=== PATIENT | male | born 1940 | race Caucasian/White ===

== ENCOUNTER 2019-12-16 09:40 | Emergency (ER) | payer MEDICARE ==
[~2019-12-16] VITALS: Ht 172.7 cm; Wt 81.0 kg
--- NOTE | 2019-12-16 09:49 | ED Dyspnea ---
General Stated Complaint: SOB Source of Information: Patient Exam Limitations: No Limitations History of Present Illness Date Seen by Provider: Dec 16, 2019 Time Seen by Provider: 09:46 Initial Comments 79-year-old male brought in by EMS. Patient called EMS due to shortness of breath. Just arrived yesterday from [place] where his movement and with his daughter. Patient reports that he has recurrent pneumonia. He denies any cough. Patient was prescribed oxygen but states that he does not have chronic shortness of breath. Patient denies any fevers or chills. He did have some slight nausea. No reports of chest pain. No known COVID exposure. Patient does have a history of kidney transplant, anemia. No other systemic complaints. Allergies and Home Medications Allergies Coded Allergies: amlodipine (Verified Allergy, Unknown, 12/16/19) atorvastatin (Verified Allergy, Unknown, 12/16/19) Patient Home Medication List Home Medication List Reviewed: Yes Review of Systems Review of Systems Constitutional: No chills, No fever EENTM: no symptoms reported Respiratory: No cough; dyspnea on exertion, short of breath Cardiovascular: No chest pain, No palpitations Gastrointestinal: No abdominal pain, No nausea, No vomiting Genitourinary: no symptoms reported Musculoskeletal: no symptoms reported Skin: no symptoms reported Psychiatric/Neurological: No Symptoms Reported Past Mkaxzzt-Ulcdas-Hxdxak Hx Past Med/Social Hx: Reviewed Nursing Past Med/Soc Hx Physical Exam Vital Signs Vital Signs - First Documented 12/16/19 09:43 Temp 36.3 Pulse 59 Resp 17 B/P (MAP) 114/62 (79) Pulse Ox 59 O2 Delivery Room Air Capillary Refill : Height, Weight, BMI Height: '" Weight: lbs. oz. 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 as Tested Skin: Normal Color, Warm/Dry Progress/Results/Core Measures Results/Orders Lab Results Laboratory Tests Test 12/16/19 09:48 Range/Units White Blood Count 7.8 4.3-11.0 10^3/uL Red Blood Count 3.10 L 4.35-5.85 10^6/uL Hemoglobin 8.3 L 13.3-17.7 G/DL Hematocrit 27 L 40-54 % Mean Corpuscular Volume 86 80-99 FL Mean Corpuscular Hemoglobin 27 25-34 PG Mean Corpuscular Hemoglobin Concent 31 L 32-36 G/DL Red Cell Distribution Width 19.7 H 10.0-14.5 % Platelet Count 229 130-400 10^3/uL Mean Platelet Volume 10.6 H 7.4-10.4 FL Immature Granulocyte % (Auto) 0 % Neutrophils (%) (Auto) 74 42-75 % Lymphocytes (%) (Auto) 13 12-44 % Monocytes (%) (Auto) 11 0-12 % Eosinophils (%) (Auto) 2 0-10 % Basophils (%) (Auto) 1 0-10 % Neutrophils # (Auto) 5.7 1.8-7.8 X 10^3 Lymphocytes # (Auto) 1.0 1.0-4.0 X 10^3 Monocytes # (Auto) 0.9 0.0-1.0 X 10^3 Eosinophils # (Auto) 0.1 0.0-0.3 10^3/uL Basophils # (Auto) 0.0 0.0-0.1 10^3/uL Immature Granulocyte # (Auto) 0.0 0.0-0.1 10^3/uL Sodium Level 136 135-145 MMOL/L Potassium Level 4.8 3.6-5.0 MMOL/L Chloride Level 101 98-107 MMOL/L Carbon Dioxide Level 20 L 21-32 MMOL/L Anion Gap 15 H 5-14 MMOL/L Blood Urea Nitrogen 42 H 7-18 MG/DL Creatinine 1.52 H 0.60-1.30 MG/DL Estimat Glomerular Filtration Rate 45 BUN/Creatinine Ratio 28 Glucose Level 226 H 70-105 MG/DL Calcium Level 9.2 8.5-10.1 MG/DL Corrected Calcium 9.6 8.5-10.1 MG/DL Magnesium Level 1.9 1.6-2.4 MG/DL Total Bilirubin 0.7 0.1-1.0 MG/DL Aspartate Amino Transf (AST/SGOT) 27 5-34 U/L Alanine Aminotransferase (ALT/SGPT) 15 0-55 U/L Alkaline Phosphatase 112 40-136 U/L Troponin I < 0.30 <0.30 NG/ML C-Reactive Protein 2.42 H <0.50 MG/DL Pro-B-Type Natriuretic Peptide 4294.0 H <75.0 PG/ML Total Protein 6.6 6.4-8.2 GM/DL Albumin 3.5 3.2-4.5 GM/DL My Orders Orders - WOLF,CHINYERE L DO Ekg Tracing (12/16/19 09:49) Monitor-Rhythm Ecg Trace Only (12/16/19 09:49) Cbc With Automated Diff (12/16/19 09:49) Comprehensive Metabolic Panel (12/16/19 09:49) Magnesium (12/16/19 09:49) Probnp Fs (12/16/19:49) Crp Fs (12/16/19:49) Troponin I Fs (12/16/19 09:49) Albuterol/Ipra Inhalation Soln (Duoneb I (12/16/19 10:00) Svn Small Volume Nebulizer (12/16/19 09:49) Chest Pa/Lat (2 View) (12/16/19 10:27) Furosemide Injection (Lasix Injection) (12/16/19 11:00) Protime With Inr (12/16/19 11:31) Medications Given in ED Current Medications Medications Dose Ordered Sig/Girma Route Start Time Stop Time Status Last Admin Dose Admin Albuterol/ Ipratropium 3 ml ONCE ONCE INH 12/16/19 10:00 12/16/19 10:01 DC 12/16/19 10:05 3 ML Furosemide 40 mg ONCE ONCE IVP 12/16/19 11:00 12/16/19 11:01 DC 12/16/19 11:01 40 MG Vital Signs/I&O 12/16/19 09:43 Temp 36.3 Pulse 59 Resp 17 B/P (MAP) 114/62 (79) Pulse Ox 59 O2 Delivery Room Air Progress Progress Note : Time: 11:34 Progress Note Patient with some mild pulmonary congestion/edema. Patient's oxygen in the mid 90s while he is awake. Patient falls asleep his oxygen does drop into the low 80s. Patient does however have home oxygen prescribed for when he is asleep due to this known problem. Patient likely has some underlying sleep apnea. Patient would prefer to be discharged home with the increase in his Lasix over the next 3 days versus admission. I called and discussed with patient's daughter who unde rstands the plan where he is living. She reiterated that he likely has sleep apnea and won't always wear his oxygen as recommended. I did administer an extra 40 of IV Lasix today. I recommend a follow-up with her primary care provider and also fisher trawl net optimize his medications at home. Patient is stable and will be discharged Diagnostic Imaging Diagonstic Imaging: Xray Plain Films/CT/US/NM/MRI: chest Comments [facility]. [place], [place] NAME: ASHLY RASMUSSEN [facility] REC#: [id number] PT STATUS: REG ER : 1940 PHYSICIAN: CHINYERE WOLF DO ADMIT DATE: 12/16/19/ER FS Draft Date of Exam:12/16/19 CHEST PA/LAT (2 VIEW) INDICATION: Shortness of breath and dyspnea. COMPARISON: No priors. FINDINGS: There are bilateral small posterior sulcal pleural effusions, greater right. The heart size is at the upper limits and there is some prominence of the central pulmonary vascularity as well as likely bilateral mild interstitial type edema. No pneumothorax. IMPRESSION: Overall findings suggest failure pattern with edema, vascular congestion, and small effusions. Reviewed: Reviewed by Me, Reviewed/Discussed Departure Impression Primary Impression: Pulmonary edema with congestive heart failure Disposition: 01 HOME, SELF-CARE Condition: Stable Departure-Patient Inst. Referrals: NO,LOCAL PHYSICIAN (PCP/Family) Primary Care Physician Patient Instructions: When Your Lungs Fill With Fluid, Heart Failure, Adult (DC) Add. Discharge Instructions: Please increase your Lasix to 80 mg daily for 3 days starting tomorrow Follow-up with your primary care provider in 2-3 days for recheck in today symptoms I would recommend you establish care with a fisher trawl net for management of your heart failure CHINYERE WOLF DO Dec 16, 2019 09:49
[2019-12-16] MEDS ORDERED: RT-ALBUTEROL/IPRATROPIUM 3 ML (DUONEB) VIAL INH ONE (10:00)
[2019-12-16 10:05] LABS: BASOPHILS % (AUTO) 1 % (0-10); EOSINOPHILS # (AUTO) 0.1 10^3/uL (0.0-0.3); EOSINOPHILS % (AUTO) 2 % (0-10); HEMATOCRIT 27 % (40-54); HEMOGLOBIN 8.3 G/DL (13.3-17.7); LYMPHOCYTES % (AUTO) 13 % (12-44); MEAN CORPUSCULAR HEMOGLOBIN 27 PG (25-34); MEAN CORPUSCULAR HGB CONC 31 G/DL (32-36); MEAN CORPUSCULAR VOLUME 86 FL (80-99); MEAN PLATELET VOLUME 10.6 FL (7.4-10.4); MONOCYTES # (AUTO) 0.9 X 10^3 (0.0-1.0); MONOCYTES % (AUTO) 11 % (0-12); NEUTROPHILS # (AUTO) 5.7 X 10^3 (1.8-7.8); NEUTROPHILS % (AUTO) 74 % (42-75); PLATELET COUNT 229 10^3/uL (130-400); WHITE BLOOD COUNT 7.8 10^3/uL (4.3-11.0)
[2019-12-16 10:36] LABS: ALANINE AMINOTRANSFERASE 15 U/L (0-55); ALBUMIN 3.5 GM/DL (3.2-4.5); ALKALINE PHOSPHATASE 112 U/L (40-136); BILIRUBIN,TOTAL 0.7 MG/DL (0.1-1.0); BUN/CREATININE RATIO 28; CALCIUM 9.2 MG/DL (8.5-10.1); CARBON DIOXIDE 20 MMOL/L (21-32); CHLORIDE 101 MMOL/L (98-107); CREATININE SERUM 1.52 MG/DL (0.60-1.30); GFR ESTIMATED 45; GLUCOSE 226 MG/DL (70-105); MAGNESIUM 1.9 MG/DL (1.6-2.4); POTASSIUM 4.8 MMOL/L (3.6-5.0); SODIUM 136 MMOL/L (135-145); TOTAL PROTEIN 6.6 GM/DL (6.4-8.2)
--- NOTE | 2019-12-16 10:46 | Diagnostic Imaging Report ---
INDICATION: Shortness of breath and dyspnea. COMPARISON: No priors. FINDINGS: There are bilateral small posterior sulcal pleural effusions, greater right. The heart size is at the upper limits and there is some prominence of the central pulmonary vascularity as well as likely bilateral mild interstitial type edema. No pneumothorax. IMPRESSION: Overall findings suggest failure pattern with edema, vascular congestion, and small effusions. Dictated by: Dictated on workstation # [id number]
[2019-12-16] MEDS ORDERED: FUROSEMIDE 40 MG/4 ML INJ (LASIX) IVP ONE (11:00)
[2019-12-16 11:47] VITALS: BP 141/44
[2019-12-16 12:25] LABS: INR 2.4 (0.8-1.4); PROTHROMBIN TIME PATIENT 26.5 SEC (12.2-14.7)
== END 2019-12-16 11:47 | disposition home or self-care (01) ==
LOC: ER FS 09:41
DX: I50.1 Left ventricular failure, unspecified (principal); Z88.8 Allergy status to other drugs, medicaments and biological substances
CPT/HCPCS: 36415; 71046; 80053; 83735; 83880; 84484; 85025; 85610; 86141; 93041

== ENCOUNTER → 2019-12-21 | Outpatient (CLI) | payer MEDICARE ==
[2019-12-21 14:05] LABS: PROTHROMBIN TIME PATIENT 31.5 SEC (12.2-14.7)
== END ==
LOC: LAB FS 12:28
PROVIDERS: ATTEND Family Medicine
DX: I48.91 Unspecified atrial fibrillation (principal); K92.2 Gastrointestinal hemorrhage, unspecified; Z79.01 Long term (current) use of anticoagulants
CPT/HCPCS: 36415; 85610

== ENCOUNTER 2019-12-25 06:11 | Emergency (ER) | payer MEDICARE ==
[~2019-12-25] VITALS: Ht 172.7 cm; Wt 81.6 kg
--- NOTE | 2019-12-25 06:27 | ED General ---
General Chief Complaint: Abdominal/GI Problems Stated Complaint: FALL Source of Information: Patient, EMS Exam Limitations: No Limitations History of Present Illness Date Seen by Provider: Dec 25, 2019 Time Seen by Provider: 06:15 Initial Comments 79-year-old male presents by EMS with complaint of following this morning. States he was getting out of bed to urinate when his feet slipped and he landed on his back on the floor. Patient denies any pain or injury, however his daughter called EMS because she was told if he ever falls he needs to be seen because he takes Coumadin. Patient denies head injury, headache, neck pain or back pain, joint pain or any extremity pain. He is alert and oriented. Allergies and Home Medications Allergies Coded Allergies: amlodipine (Verified Allergy, Unknown, 12/16/19) atorvastatin (Verified Allergy, Unknown, 12/16/19) Patient Home Medication List Home Medication List Reviewed: Yes Review of Systems Review of Systems Constitutional: No chills, No dizziness, No fever, No malaise, No weakness EENTM: no symptoms reported Respiratory: no symptoms reported; No cough, No short of breath Cardiovascular: no symptoms reported; No chest pain, No syncope Gastrointestinal: No abdominal pain, No loss of appetite; nausea (did have some nausea last night, resolved now) Musculoskeletal: see HPI; No back pain, No joint pain, No neck pain Skin: No change in color, No rash Psychiatric/Neurological: Denies Headache, Denies Numbness, Denies Paresthesia, Denies Weakness Hematologic/Lymphatic: Denies Anemia; Easy Bruising (on coumadin) Past Emrtqin-Eiompq-Ufqsyi Hx Past Med/Social Hx: Reviewed Nursing Past Med/Soc Hx Patient Social History 2nd Hand Smoke Exposure: No Recent Foreign Travel: No Contact w/Someone Who Travel: No Recent Hopitalizations: No Seasonal Allergies Seasonal Allergies: No Past Medical History Surgeries: Yes (Aortic Valve replacement) CABG, Eye Surgery, Gallbladder, Kidney Transplant, Tonsillectomy, Valve Replacement Respiratory: No (PRN Oxygen for shortness of breath) Atrial Fibrillation, Heart Attack, High Cholesterol, Hypertension, Valvular Heart Disease Neurological: No Genitourinary: Yes (Kidney transplant, Urinary retention, UTI's, Sepsis) Renal Failure Gastrointestinal: Yes Gastrointestinal Bleed Musculoskeletal: Yes (Falls) Osteoporosis Endocrine: Yes (INSULIN PUMP) Diabetes, Insulin dep HEENT: No Cancer: No Psychosocial: No Integumentary: No Blood Disorders: Yes (ANEMIA) Physical Exam Vital Signs Vital Signs - First Documented 12/25/19 06:11 Temp 37.1 Pulse 99 Resp 14 B/P (MAP) 129/64 (85) Pulse Ox 94 O2 Delivery Room Air Capillary Refill : Height, Weight, BMI Height: '" Weight: lbs. oz. kg; 27.00 BMI Method: General Appearance: No Apparent Distress, WD/WN Eyes: Bilateral Eye Normal Inspection, Bilateral Eye PERRL, Bilateral Eye EOMI HEENT: PERRL/EOMI, Normal ENT Inspection Neck: Full Range of Motion, Normal Inspection, Non Tender Respiratory: Chest Non Tender, Lungs Clear Cardiovascular: Regular Rate, Rhythm, No Edema, No Gallop Gastrointestinal: Normal Bowel Sounds, No Organomegaly, No Pulsatile Mass, Non Tender, Soft Back: Normal Inspection, No CVA Tenderness, No Vertebral Tenderness Extremity: Normal Capillary Refill, Normal Inspection, Normal Range of Motion, Non Tender, No Calf Tenderness Neurologic/Psychiatric: Alert, Oriented x3, No Motor/Sensory Deficits, Normal Mood/Affect, 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 II-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 Norm as Tested Skin: Normal Color, Warm/Dry Progress/Results/Core Measures Suspected Sepsis SIRS Temperature: Pulse: Respiratory Rate: Laboratory Tests 12/25/19 06:25: White Blood Count 15.5H Blood Pressure / Mean: Laboratory Tests 12/25/19 06:25: Creatinine 1.60H, INR Comment 3.2H, Platelet Count 274 Results/Orders Lab Results Laboratory Tests Test 12/25/19 06:25 Range/Units White Blood Count 15.5 H 4.3-11.0 10^3/uL Red Blood Count 3.07 L 4.35-5.85 10^6/uL Hemoglobin 8.5 L 13.3-17.7 G/DL Hematocrit 27 L 40-54 % Mean Corpuscular Volume 87 80-99 FL Mean Corpuscular Hemoglobin 28 25-34 PG Mean Corpuscular Hemoglobin Concent 32 32-36 G/DL Red Cell Distribution Width 18.9 H 10.0-14.5 % Platelet Count 274 130-400 10^3/uL Mean Platelet Volume 10.5 H 7.4-10.4 FL Neutrophils (%) (Auto) 14 L 42-75 % Lymphocytes (%) (Auto) 0 L 12-44 % Monocytes (%) (Auto) 2 0-12 % Eosinophils (%) (Auto) 0 0-10 % Basophils (%) (Auto) 0 0-10 % Neutrophils # (Auto) 87.9 H 1.8-7.8 X 10^3 Lymphocytes # (Auto) 1.8 1.0-4.0 X 10^3 Monocytes # (Auto) 10.2 H 0.0-1.0 X 10^3 Eosinophils # (Auto) 0.0 0.0-0.3 10^3/uL Basophils # (Auto) 0.0 0.0-0.1 10^3/uL Neutrophils % (Manual) 91 % Lymphocytes % (Manual) 3 % Monocytes % (Manual) 6 % Toxic Granulation 3+ Elliptocytes SLIGHT Prothrombin Time 32.8 H 12.2-14.7 SEC INR Comment 3.2 H 0.8-1.4 Sodium Level 133 L 135-145 MMOL/L Potassium Level 4.5 3.6-5.0 MMOL/L Chloride Level 97 L 98-107 MMOL/L Carbon Dioxide Level 20 L 21-32 MMOL/L Anion Gap 16 H 5-14 MMOL/L Blood Urea Nitrogen 51 H 7-18 MG/DL Creatinine 1.60 H 0.60-1.30 MG/DL Estimat Glomerular Filtration Rate 42 BUN/Creatinine Ratio 32 Glucose Level 334 H 70-105 MG/DL Calcium Level 8.8 8.5-10.1 MG/DL My Orders Orders - MELLISA CORDERO DO Cbc With Automated Diff (12/25/19 06:19) Basic Metabolic Panel (12/25/19 06:19) Protime With Inr (12/25/19 06:19) Manual Differential (12/25/19 06:25) Normal Saline 500 Ml Iv (12/25/19 07:15) Vital Signs/I&O 12/25/19 06:11 Temp 37.1 Pulse 99 Resp 14 B/P (MAP) 129/64 (85) Pulse Ox 94 O2 Delivery Room Air Capillary Refill : Departure Impression Primary Impression: Fall with no significant injury Qualified Codes: W19.XXXA - Unspecified fall, initial encounter Additional Impressions: Mild dehydration CRF (chronic renal failure) Qualified Codes: N18.9 - Chronic kidney disease, unspecified Disposition: 01 HOME, SELF-CARE Condition: Stable Departure-Patient Inst. Decision time for Depature: 07:06 Referrals: ORIANA TEE MD (PCP/Family) Primary Care Physician Patient Instructions: Preventing Falls in the Older Adult, Kidney Failure (DC), Dehydration, Adult (DC) Add. Discharge Instructions: see Dr Tee for follow up in a few days All discharge instructions reviewed with patient and/or family. Voiced understanding. MELLISA CORDERO DO Dec 25, 2019 06:26
[2019-12-25 06:45] LABS: WHITE BLOOD COUNT 15.5 10^3/uL (4.3-11.0)
[2019-12-25 06:46] LABS: EOSINOPHILS % (AUTO) 0 % (0-10); HEMATOCRIT 27 % (40-54); HEMOGLOBIN 8.5 G/DL (13.3-17.7); MEAN CORPUSCULAR HEMOGLOBIN 28 PG (25-34); MEAN CORPUSCULAR HGB CONC 32 G/DL (32-36); MEAN CORPUSCULAR VOLUME 87 FL (80-99); MEAN PLATELET VOLUME 10.5 FL (7.4-10.4); PLATELET COUNT 274 10^3/uL (130-400)
[2019-12-25 06:47] LABS: BASOPHILS % (AUTO) 0 % (0-10)
[2019-12-25 06:50] LABS: INR 3.2 (0.8-1.4); PROTHROMBIN TIME PATIENT 32.8 SEC (12.2-14.7)
[2019-12-25 06:57] LABS: ELLIPT/OVALOCYTES SLIGHT; LYMPHOCYTES % (MANUAL) 3 %; MONOCYTES % (MANUAL) 6 %; NEUTROPHILS % (MANUAL) 91 %; TOXIC GRANULATION/VACUOLAZATIO 3+
[2019-12-25 06:59] LABS: CALCIUM 8.8 MG/DL (8.5-10.1); CREATININE SERUM 1.6 MG/DL (0.60-1.30); POTASSIUM 4.5 MMOL/L (3.6-5.0)
[2019-12-25] MEDS ORDERED: NS IV 500 ML 500 ML IV SCH (07:15)
[2019-12-25 08:28] VITALS: BP 130/56
[2019-12-25] MEDS ORDERED: PANT40TA52 PO (22:05)
[2019-12-25] MEDS ORDERED: PRD1T PO (22:05)
[2019-12-25] MEDS ORDERED: WARF-48 PO (22:05)
[2019-12-25] MEDS ORDERED: TMSL.4C PO (22:05)
[2019-12-25] MEDS ORDERED: METO-333 PO (22:05)
[2019-12-25] MEDS ORDERED: ASPI-999 PO (22:05)
[2019-12-25] MEDS ORDERED: NIFE-25 PO (22:05)
[2019-12-25] MEDS ORDERED: OMEG1CAP24 PO (22:05)
[2019-12-25] MEDS ORDERED: ROSU20TA32 PO (22:05)
[2019-12-25] MEDS ORDERED: FERR236T3 PO (22:27)
[2019-12-25] MEDS ORDERED: FURO-124 PO (22:27)
[2019-12-25] MEDS ORDERED: CALC-140 PO (22:27)
[2019-12-25] MEDS ORDERED: VIT1CAPS44 PO (22:27)
[2019-12-25] MEDS ORDERED: MULT-1136 PO (22:27)
[2019-12-25] MEDS ORDERED: EZET10TA49 PO (22:27)
[2019-12-25] MEDS ORDERED: CYCL25CA7 PO (22:27)
[2019-12-26 12:40] LABS: NEUTROPHILS % (AUTO) 88 % (42-75)
[2019-12-26 12:41] LABS: LYMPHOCYTES % (AUTO) 2 % (12-44); MONOCYTES % (AUTO) 10 % (0-12)
[2019-12-26 12:42] LABS: LYMPHOCYTES # (AUTO) 0.3 X 10^3 (1.0-4.0); MONOCYTES # (AUTO) 1.6 X 10^3 (0.0-1.0); NEUTROPHILS # (AUTO) 13.6 X 10^3 (1.8-7.8)
== END 2019-12-25 08:28 | disposition home or self-care (01) ==
LOC: EDUNIT# 06:11 → ER FS 06:13
DX: E86.0 Dehydration (principal); N18.9 Chronic kidney disease, unspecified; I25.2 Old myocardial infarction; Z95.1 Presence of aortocoronary bypass graft; Z88.8 Allergy status to other drugs, medicaments and biological substances
CPT/HCPCS: 36415; 80048; 85007; 85027; 85610

== ENCOUNTER 2019-12-25 11:18 | Inpatient (IN) | payer MEDICARE ==
[~2019-12-25] VITALS: Ht 172.7 cm; Wt 82.6 kg
--- NOTE | 2019-12-25 11:34 | ED General ---
General Stated Complaint: GENERAL History of Present Illness Date Seen by Provider: Dec 25, 2019 Time Seen by Provider: 11:20 Initial Comments Patient returns to the ER by EMS after being seen this morning (myself) after a fall. At that time he was evaluated with full physical exam and labs and discharged to home without any incident or hesitation. EMS states they were called with concern that patient was "crashing". On arrival patient awake and alert, walked down the stairs to them with normal vital signs and a blood sugar of 280. Patient no distress and without complaint. Patient's daughter wanted him to be evaluated in [place], however EMS brought him to the closest appropriate facility which was here. Patient without any complaint on initial evaluation this time as well, denies pain, injury or feeling of illness. Asked why he is here, he says "I don't know, I have diabetes". Also states "my daughter wanted me to go to [place]" Allergies and Home Medications Allergies Coded Allergies: amlodipine (Verified Allergy, Unknown, 12/16/19) atorvastatin (Verified Allergy, Unknown, 12/16/19) Home Medications Aspirin 81 Mg Tab.chew, 81 MG PO DAILY, (Reported) Metoprolol Tartrate 25 Mg Tablet, 25 MG PO BID, (Reported) Nifedipine 30 Mg Tab.er.24, 30 MG PO DAILY, (Reported) [place]-3 Fatty Acids/Fish Oil 1 Each Capsule.dr, 1 EACH PO DAILY, (Reported) Pantoprazole Sodium 40 Mg Tablet.dr, 40 MG PO BID, (Reported) Prednisone 1 Mg Tab, 2 MG PO DAILY, (Reported) Rosuvastatin Calcium 20 Mg Tablet, 20 MG PO HS, (Reported) Tamsulosin HCl 0.4 Mg Cap, 0.4 MG PO HS, (Reported) Warfarin Sodium 5 Mg Tablet, 5 MG PO HS, (Reported) Patient Home Medication List Home Medication List Reviewed: Yes Review of Systems Review of Systems Constitutional: see HPI; No chills, No dizziness, No fever, No malaise, No weakness Respiratory: cough (occasional); No short of breath, No wheezing Cardiovascular: No edema, No palpitations, No syncope Gastrointestinal: No abdominal pain, No nausea, No vomiting Musculoskeletal: No back pain, No joint pain Skin: No change in color, No rash Psychiatric/Neurological: Denies Headache, Denies Numbness, Denies Weakness Past Nwrnsmh-Sszyrw-Zvlnxk Hx Past Med/Social Hx: Reviewed Nursing Past Med/Soc Hx Patient Social History 2nd Hand Smoke Exposure: No Recent Hopitalizations: No Seasonal Allergies Seasonal Allergies: No Past Medical History Surgeries: Yes (Aortic Valve replacement) CABG, Eye Surgery, Gallbladder, Kidney Transplant, Tonsillectomy, Valve Replacement Respiratory: No (PRN Oxygen for shortness of breath) Cardiac: Yes Atrial Fibrillation, Heart Attack, High Cholesterol, Hypertension, Valvular Heart Disease Neurological: No Genitourinary: Yes (Kidney transplant, Urinary retention, UTI's, Sepsis) Renal Failure Gastrointestinal: Yes Gastrointestinal Bleed Musculoskeletal: Yes (Falls) Osteoporosis Endocrine: Yes (INSULIN PUMP) Diabetes, Insulin dep HEENT: No Cancer: No Psychosocial: No Integumentary: No Blood Disorders: Yes (ANEMIA) Physical Exam Vital Signs Vital Signs - First Documented 12/25/19 11:18 Temp 38.7 Pulse 95 Resp 20 B/P (MAP) 134/73 (93) Pulse Ox 93 O2 Delivery Nasal Cannula O2 Flow Rate 2.00 Capillary Refill : Height, Weight, BMI Height: '" Weight: lbs. oz. 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 Norm as Tested Focused Exam Lactate Level 12/25/19 11:55: Lactic Acid Level 2.47*H 12/25/19 13:33: Lactic Acid Level 1.40 Lactic Acid Level Laboratory Tests Test 12/25/19 11:55 12/25/19 13:33 Lactic Acid Level 2.47 MMOL/L (0.50-2.00) *H 1.40 MMOL/L (0.50-2.00) Progress/Results/Core Measures Suspected Sepsis SIRS Temperature: Pulse: Respiratory Rate: Laboratory Tests 12/25/19 11:35: White Blood Count 16.1H Blood Pressure / Mean: 12/25/19 11:55: Lactic Acid Level 2.47*H 12/25/19 13:33: Lactic Acid Level 1.40 Laboratory Tests 12/25/19 11:35: Creatinine 1.64H, Platelet Count 143, Total Bilirubin 0.8 Results/Orders Lab Results Laboratory Tests Test 12/25/19 11:35 12/25/19 11:55 12/25/19 13:03 12/25/19 13:33 Range/Units White Blood Count 16.1 H 4.3-11.0 10^3/uL Red Blood Count 3.06 L 4.35-5.85 10^6/uL Hemoglobin 8.2 L 13.3-17.7 G/DL Hematocrit 27 L 40-54 % Mean Corpuscular Volume 87 80-99 FL Mean Corpuscular Hemoglobin 27 25-34 PG Mean Corpuscular Hemoglobin Concent 31 L 32-36 G/DL Red Cell Distribution Width 19.3 H 10.0-14.5 % Platelet Count 143 130-400 10^3/uL Mean Platelet Volume 12.1 H 7.4-10.4 FL Immature Granulocyte % (Auto) 1 % Neutrophils (%) (Auto) 89 H 42-75 % Lymphocytes (%) (Auto) 3 L 12-44 % Monocytes (%) (Auto) 8 0-12 % Eosinophils (%) (Auto) 0 0-10 % Basophils (%) (Auto) 0 0-10 % Neutrophils # (Auto) 14.3 H 1.8-7.8 X 10^3 Lymphocytes # (Auto) 0.5 L 1.0-4.0 X 10^3 Monocytes # (Auto) 1.2 H 0.0-1.0 X 10^3 Eosinophils # (Auto) 0.0 0.0-0.3 10^3/uL Basophils # (Auto) 0.0 0.0-0.1 10^3/uL Immature Granulocyte # (Auto) 0.1 0.0-0.1 10^3/uL Neutrophils % (Manual) 87 % Lymphocytes % (Manual) 4 % Monocytes % (Manual) 2 % Eosinophils % (Manual) 0 % Basophils % (Manual) 1 % Band Neutrophils 6 % Hypochromasia SLIGHT Poikilocytosis MODERATE Anisocytosis SLIGHT Microcytosis SLIGHT Spherocytes SLIGHT Acanthocytes SLIGHT Sodium Level 131 L 135-145 MMOL/L Potassium Level 5.5 H 3.6-5.0 MMOL/L Chloride Level 98 98-107 MMOL/L Carbon Dioxide Level 19 L 21-32 MMOL/L Anion Gap 14 5-14 MMOL/L Blood Urea Nitrogen 55 H 7-18 MG/DL Creatinine 1.64 H 0.60-1.30 MG/DL Estimat Glomerular Filtration Rate 41 BUN/Creatinine Ratio 34 Glucose Level 381 H 70-105 MG/DL Calcium Level 8.8 8.5-10.1 MG/DL Corrected Calcium 9.2 8.5-10.1 MG/DL Total Bilirubin 0.8 0.1-1.0 MG/DL Aspartate Amino Transf (AST/SGOT) 56 H 5-34 U/L Alanine Aminotransferase (ALT/SGPT) 27 0-55 U/L Alkaline Phosphatase 106 40-136 U/L Troponin I < 0.30 <0.30 NG/ML Total Protein 6.7 6.4-8.2 GM/DL Albumin 3.5 3.2-4.5 GM/DL Lactic Acid Level 2.47 *H 1.40 0.50-2.00 MMOL/L Urine Color YELLOW Urine Clarity SL CLOUDY Urine pH 6.0 5-9 Urine Specific [place] 1.020 1.016-1.022 Urine Protein 2+ H NEGATIVE Urine Glucose (UA) NEGATIVE NEGATIVE Urine Ketones TRACE H NEGATIVE Urine Nitrite NEGATIVE NEGATIVE Urine Bilirubin NEGATIVE NEGATIVE Urine Urobilinogen 0.2 < = 1.0 MG/DL Urine Leukocyte Esterase 1+ H NEGATIVE Urine RBC (Auto) 2+ H NEGATIVE Urine RBC 5-10 H /HPF Urine WBC >100 H /HPF Urine Squamous Epithelial Cells 0-2 /HPF Urine Crystals NONE /LPF Urine Bacteria LARGE H /HPF Urine Casts NONE /LPF Urine Mucus NEGATIVE /LPF Urine Culture Indicated YES My Orders Orders - ROVENSTINE,MELLISA L DO Ed Iv/Invasive Line Start (12/25/19 11:26) Cbc With Automated Diff (12/25/19 11:26) Comprehensive Metabolic Panel (12/25/19 11:26) Urinalysis (12/25/19 11:26) Ekg Tracing (12/25/19 11:26) Troponin I Fs (12/25/19 11:26) Chest 1 View Ap/Pa Only (12/25/19 11:29) Manual Differential (12/25/19 11:35) Lactic Acid Analyzer (12/25/19 11:53) Acetaminophen Tablet (Tylenol Tablet) (12/25/19 12:15) Blood Culture (12/25/19 12:06) Influenza A And B Antigens (12/25/19 12:08) Coronavirus Sars-Cov-2 So 2019 (12/25/19 12:08) Ns Iv 500 Ml (Sodium Chloride 0.9%) (12/25/19 13:00) Ceftriaxone For Iv Use (Rocephin For I (12/25/19 13:00) Urine Culture (12/25/19 13:03) Medications Given in ED Current Medications Medications Dose Ordered Sig/Girma Route Start Time Stop Time Status Last Admin Dose Admin Acetaminophen 1,000 mg ONCE ONCE PO 12/25/19 12:15 12/25/19 12:16 DC 12/25/19 12:28 1,000 MG Ceftriaxone Sodium 1000 mg/ Sterile Water 10 ml @ 200 mls/hr ONCE ONCE IV 12/25/19 13:00 12/25/19 13:02 DC 12/25/19 13:26 200 MLS/HR Vital Signs/I&O 12/25/19 11:18 Temp 38.7 Pulse 95 Resp 20 B/P (MAP) 134/73 (93) Pulse Ox 93 O2 Delivery Nasal Cannula O2 Flow Rate 2.00 Capillary Refill : Progress Note : Progress Note Did discuss patient's status with his daughter who has been caring for him in the past few weeks. Patient recently here with his daughter after residing in [place]. His daughter states that he has had frequent UTIs recently and in the past month was discharged from the hospital for urinary tract infection which the daughter believes never went away. She doesn't know what Abx he took at that time, but does state that he had "klebsiella" Diagnostic Imaging Diagonstic Imaging: Xray Plain Films/CT/US/NM/MRI: chest Comments Date of Exam:12/25/19 CHEST 1 VIEW AP/PA ONLY INDICATION: Cough and malaise. Frontal chest obtained at 11:36 a.m. and compared to 12/16/2019. FINDINGS: There is poststernotomy change with cardiomegaly. There is central vascular congestion with interstitial edema with some mild bibasilar infiltrate. There is no pneumothorax or pleural fluid. Old left-sided rib fracture is noted. IMPRESSION: Cardiomegaly with poststernotomy change with central vascular congestion and mild interstitial edema. There are mild bibasilar infiltrates. There is no pneumothorax or pleural fluid. 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 1423- called Dr Henderson's cell and home phone 1435- called Dr Henderson's cell and home phone 1440- nurse called in house cra, who called administration. 1445- received call from House Sup who says Dr Henderson answered phone for admin. 1447- called Dr Henderson's cell, no answer 1449- Called from a different phone and Dr Henderson answered (states first phone call he has received from sc) 1449 -Dr Henderson accepts for admission/ transfer to [facility] Impression Primary Impression: UTI (urinary tract infection) Qualified Codes: N39.0 - Urinary tract infection, site not specified Additional Impressions: CRF (chronic renal failure) Qualified Codes: N18.9 - Chronic kidney disease, unspecified Mild dehydration Disposition: ADMITTED INPATIENT Condition: Stable Admissions Decision to Admit Reason: Admit from ER (General) Decision to Admit/Date: Dec 25, 2019 Time/Decision to Admit Time: 12:07 Departure-Patient Inst. Referrals: ORIANA LOJA MD (PCP/Family) Primary Care Physician MELLISA CORDERO DO Dec 25, 2019 11:34
[2019-12-25 11:46] LABS: BASOPHILS % (AUTO) 0 % (0-10); EOSINOPHILS % (AUTO) 0 % (0-10); HEMATOCRIT 27 % (40-54); HEMOGLOBIN 8.2 G/DL (13.3-17.7); LYMPHOCYTES # (AUTO) 0.5 X 10^3 (1.0-4.0); LYMPHOCYTES % (AUTO) 3 % (12-44); MEAN CORPUSCULAR HEMOGLOBIN 27 PG (25-34); MEAN CORPUSCULAR HGB CONC 31 G/DL (32-36); MEAN CORPUSCULAR VOLUME 87 FL (80-99); MEAN PLATELET VOLUME 12.1 FL (7.4-10.4); MONOCYTES # (AUTO) 1.2 X 10^3 (0.0-1.0); MONOCYTES % (AUTO) 8 % (0-12); NEUTROPHILS # (AUTO) 14.3 X 10^3 (1.8-7.8); NEUTROPHILS % (AUTO) 89 % (42-75); PLATELET COUNT 143 10^3/uL (130-400); WHITE BLOOD COUNT 16.1 10^3/uL (4.3-11.0)
--- NOTE | 2019-12-25 12:02 | Diagnostic Imaging Report ---
INDICATION: Cough and malaise. Frontal chest obtained at 11:36 a.m. and compared to 12/16/2019. FINDINGS: There is poststernotomy change with cardiomegaly. There is central vascular congestion with interstitial edema with some mild bibasilar infiltrate. There is no pneumothorax or pleural fluid. Old left-sided rib fracture is noted. IMPRESSION: Cardiomegaly with poststernotomy change with central vascular congestion and mild interstitial edema. There are mild bibasilar infiltrates. There is no pneumothorax or pleural fluid. Dictated by: Dictated on workstation # [id number]
[2019-12-25 12:10] LABS: POTASSIUM 5.5 MMOL/L (3.6-5.0); SODIUM 131 MMOL/L (135-145)
[2019-12-25 12:11] LABS: ALANINE AMINOTRANSFERASE 27 U/L (0-55); ALBUMIN 3.5 GM/DL (3.2-4.5); ALKALINE PHOSPHATASE 106 U/L (40-136); BILIRUBIN,TOTAL 0.8 MG/DL (0.1-1.0); BUN/CREATININE RATIO 34; CALCIUM 8.8 MG/DL (8.5-10.1); CARBON DIOXIDE 19 MMOL/L (21-32); CHLORIDE 98 MMOL/L (98-107); CREATININE SERUM 1.64 MG/DL (0.60-1.30); GFR ESTIMATED 41; GLUCOSE 381 MG/DL (70-105); TOTAL PROTEIN 6.7 GM/DL (6.4-8.2)
[2019-12-25] MEDS ORDERED: ACETAMINOPHEN 500 MG TAB (TYLENOL) PO ONE (12:15)
[2019-12-25 12:39] LABS: ANISOCYTOSIS SLIGHT; BAND NEUTROPHILS 6 %; BASOPHILS % (MANUAL) 1 %; EOSINOPHILS % (MANUAL) 0 %; HYPOCHROMASIA SLIGHT; LYMPHOCYTES % (MANUAL) 4 %; MICROCYTOSIS SLIGHT; MONOCYTES % (MANUAL) 2 %; NEUTROPHILS % (MANUAL) 87 %; POIKILOCYTOSIS MODERATE
[2019-12-25 12:40] LABS: ACANTHOCYTES SLIGHT; SPHEROCYTES SLIGHT
[2019-12-25] MEDS ORDERED: NS IV 500 ML 500 ML IV SCH (13:00)
[2019-12-25] MEDS ORDERED: cefTRIAXone FOR IV USE 1,000 MG in WATER (STERILE) FOR INJECTION 10 ML IV ONE (13:00)
--- NOTE | 2019-12-25 13:23 | NUR ---
Called house sup for bed.
[2019-12-25 13:26] LABS: BACTERIA,URINE LARGE /HPF; BILIRUBIN,URINE NEGATIVE (NEGATIVE); CLARITY,URINE SL CLOUDY; COLOR,URINE YELLOW; GLUCOSE, URINE (UA) NEGATIVE (NEGATIVE); KETONES,URINE TRACE (NEGATIVE); LEUKOCYTE ESTERASE ,URINE 1+ (NEGATIVE); NITRITE,URINE NEGATIVE (NEGATIVE); PROTEIN,URINE 2+ (NEGATIVE); SQUAMOUS EPITHELIAL CELL,UR 0-2 /HPF; WBC,URINE >100 /HPF
--- NOTE | 2019-12-25 15:09 | NUR ---
Pt's clara stated he was seen in [facility] in [facility] recently twice for UTI cx klebsiella. Will notify NICOLASA Davis who will be caring for patient to request records for recent admit, dc summary and urine C&S.
--- NOTE | 2019-12-25 16:01 | NUR ---
EMS called and stated they will be here in 10 minutes
--- NOTE | 2019-12-25 16:20 | NUR ---
EMS arrived at this time. Report was given and care was transferred.
--- NOTE | 2019-12-25 17:25 | NUR ---
ASHLY RASMUSSEN admitted to room 429-1, with an admitting diagnosis of UTI, DEHYDRATION, CHRONIC RENAL FAILURE,INFLUENZA A AND B, on 12/25/19 from ED via , accompanied by .ASHLY RASMUSSEN introduced to surroundings, call light, bed controls, phone, TV, temperature control, lights, meal times, smoking policy, visitor policy, side rail policy, bathrooms and showers. Patient Rights given to patient in the handbook. ASHLY RASMUSSEN verbalizes understanding that [facility] is not responsible for the loss or damage to any personal effects or valuables that are kept in the patients posession during their hospitalization. ASHLY RASMUSSEN verbalizes understanding of Interdisciplinary Patient Education. Patient and/or family were informed about the Rapid Response Team and its purpose.
[2019-12-25] MEDS ORDERED: NS IV 1000 ML 1,000 ML IV SCH (17:30)
[2019-12-25 17:55] VITALS: BP 140/65
[2019-12-25] MEDS ORDERED: FLU QUAD HIGH DOSE 240 MCG/0.7 ML 2020-21 (FLUZONE) IM ONE (18:45)
[2019-12-25 19:04] VITALS: BP 145/62
--- NOTE | 2019-12-25 21:40 | NUR ---
I TALKED WITH PTS DAUGHTER (TEODORO) ABOUT PTS HOME MEDICATIONS. DAUGHTER WAS ABLE TO TELL ME ALL HIS MEDICATIONS AND WHEN/HOW PT TAKES EACH PILL. RECONCILE HOME MED WAS DONE
[2019-12-25] MEDS ORDERED: PRD1T PO (22:05)
[2019-12-25] MEDS ORDERED: METO-333 PO (22:05)
[2019-12-25] MEDS ORDERED: TMSL.4C PO (22:05)
[2019-12-25] MEDS ORDERED: PANT40TA52 PO (22:05)
[2019-12-25] MEDS ORDERED: ASPI-999 PO (22:05)
[2019-12-25] MEDS ORDERED: WARF-48 PO (22:05)
[2019-12-25] MEDS ORDERED: OMEG1CAP24 PO (22:05)
[2019-12-25] MEDS ORDERED: ROSU20TA32 PO (22:05)
[2019-12-25] MEDS ORDERED: NIFE-25 PO (22:05)
[2019-12-25] MEDS ORDERED: FERR236T3 PO (22:27)
[2019-12-25] MEDS ORDERED: CALC-140 PO (22:27)
[2019-12-25] MEDS ORDERED: FURO-124 PO (22:27)
[2019-12-25] MEDS ORDERED: EZET10TA49 PO (22:27)
[2019-12-25] MEDS ORDERED: CYCL25CA7 PO (22:27)
[2019-12-25] MEDS ORDERED: MULT-1136 PO (22:27)
[2019-12-25] MEDS ORDERED: VIT1CAPS44 PO (22:27)
[2019-12-25] MEDS ORDERED: inSUlin ASPART (NovoLOG) 1 UNIT/0.01 ML (CHARGE PER UNIT) SC SCH (22:45)
[2019-12-25 23:10] VITALS: BP 148/66
[2019-12-26 03:49] VITALS: BP 152/68
[2019-12-26] MEDS ORDERED: inSUlin ASPART (NovoLOG) 1 UNIT/0.01 ML (CHARGE PER UNIT) SC SCH (06:00)
[2019-12-26 06:42] LABS: BASOPHILS % (AUTO) 0 % (0-10); EOSINOPHILS % (AUTO) 0 % (0-10); HEMATOCRIT 27 % (40-54); HEMOGLOBIN 8.6 g/dL (13.3-17.7); LYMPHOCYTES % (AUTO) 5 % (12-44); MEAN CORPUSCULAR HEMOGLOBIN 27 pg (25-34); MEAN CORPUSCULAR HGB CONC 32 g/dL (32-36); MEAN CORPUSCULAR VOLUME 86 fL (80-99); MEAN PLATELET VOLUME 10.8 fL (9.0-12.2); MONOCYTES # (AUTO) 0.8 10^3/uL (0.0-1.0); MONOCYTES % (AUTO) 4 % (0-12); NEUTROPHILS # (AUTO) 17.8 10^3/uL (1.8-7.8); NEUTROPHILS % (AUTO) 90 % (42-75); PLATELET COUNT 262 10^3/uL (130-400); WHITE BLOOD COUNT 19.9 10^3/uL (4.3-11.0)
[2019-12-26 06:59] LABS: ALBUMIN 3.2 GM/DL (3.2-4.5)
[2019-12-26 07:01] LABS: TOTAL PROTEIN 6.3 GM/DL (6.4-8.2)
[2019-12-26 07:05] LABS: CREATININE SERUM 2.16 MG/DL (0.60-1.30)
[2019-12-26 08:00] VITALS: BP 139/76
[2019-12-26 08:49] LABS: PROTHROMBIN TIME PATIENT 31.7 SEC (12.2-14.7)
[2019-12-26] MEDS ORDERED: ACETAMINOPHEN 325 MG TABLET PO PRN (09:00)
[2019-12-26] MEDS ORDERED: BISACODYL 10 MG SUPP (DULCOLAX) PR PRN (09:00)
[2019-12-26] MEDS ORDERED: ONDANSETRON 4 MG (ZOFRAN) ORAL DISSOLVE TAB PO PRN (09:00)
[2019-12-26] MEDS ORDERED: ONDANSETRON 4 MG/2 ML (SDV) Z0FRAN IV PRN (09:00)
[2019-12-26] MEDS ORDERED: cefTRIAXone FOR IV USE 2,000 MG in WATER (STERILE) FOR INJECTION 20 ML IV SCH (09:00)
[2019-12-26] MEDS ORDERED: ANTACID SUSP 30 ML UDC (MYLANTA) PO PRN (09:00)
[2019-12-26] MEDS ORDERED: MELATONIN 3 MG TABLET PO PRN (09:00)
[2019-12-26] MEDS ORDERED: polyethylene glycoL POWDER 17 GM (MIRALAX) PACK PO PRN (09:00)
[2019-12-26] MEDS ORDERED: OSELTAMIVIR 30 MG (TAMIFLU) CAPSULE PO ONE (09:15)
[2019-12-26] MEDS: DOCUSATE SODIUM 100 MG (COLACE) CAP PO SCH ×2 (09:34→19:52)
[2019-12-26] MEDS: meTOprolol TARTRATE 25 MG (LOPRESSOR) TABLET PO SCH ×2 (09:34→21:13)
[2019-12-26] MEDS: NIFEdipine ER 30 MG (PROCARDIA XL) TAB PO SCH (09:34)
[2019-12-26] MEDS: SENNOSIDES 8.6 MG (SENOKOT) TAB PO SCH ×2 (09:34→19:52)
[2019-12-26] MEDS: predniSONE 1 MG TAB PO SCH (09:34)
[2019-12-26] MEDS: PANTOPRAZOLE 40 MG (PROTONIX) TAB PO SCH (09:35)
[2019-12-26] MEDS: eZETimibe 10 MG (ZETIA) TABLET PO SCH (09:35)
[2019-12-26] MEDS: ASPIRIN 81 MG CHEW (CHILDREN'S ASA) PO SCH (09:35)
[2019-12-26] MEDS: LACTATED RINGERS 1,000 ML IV SCH ×2 (09:51→21:14)
[2019-12-26] MEDS: MEROPENEM 1,000 MG in WATER (STERILE) FOR INJECTION 20 ML IV SCH ×2 (09:51→21:14)
--- NOTE | 2019-12-26 10:15 | Physical Therapy Evaluation ---
PT Evaluation-General Medical Diagnosis Admission Date Dec 25, 2019 at 17:08 Medical Diagnosis: Flu; UTI Onset Date: Dec 26, 2019 Therapy Diagnosis Therapy Diagnosis: weakness Precautions Precautions/Isolations: Contact Isolation, Droplet Isolation, Fall Prevention Referral Physician: Carol Reason for Referral: Evaluation/Treatment Medical History Additional Medical History CHF, chronic renal failure. Current History Flu; UTI; admitted with progressive weakness. Reviewed History: Yes Social History Home: Single Level Currently staying with his daughter Prior Prior Level of Function SCALE: Activities may be completed with or without assistive devices. 4-Nopxoolaes-eeigspp completes the activity by him/herself with no assistance from a helper. 5-Set-up or Clean-up Assistance-helper sets up or cleans up; patient completes activity. [place] assists only prior to or following the activity. 4-Supervision or Touching Assistance-helper provides verbal cues and/or touching/steadying and/or contact guard assistance as patient completes activity. Assistance may be provided throughout the activity or intermittently. 3-Partial/Moderate Assistance-helper does LESS THAN HALF the effort. [place] lifts, holds or supports trunk or limbs, but provides less than half the effort. 2-Substantial/Maximal Assistance-helper does MORE THAN HALF the effort. [place] lifts or holds trunk or limbs and provides more than half the effort. 7-Yhduqmhrx-fzoixk does ALL the effort. Patient does none of the effort to complete the activity. Or, the assistance of 2 or more helpers is required for the patient to complete the activity. If activity was not attempted, code reason: 7-Patient Refused. 9-Not Applicable-not attempted and the patient did not perform the activity before the current illness, exacerbation or injury. 10-Not Attempted due to Environmental Limitations-(lack of equipment, weather restraints, etc.). 88-Not Attempted due to Medical Conditions or Safety Concerns. Bed Mobility: 6 Transfers (B,C,W/C): 6 Gait: 6 Indoor Mobility (Ambulation): Independent Stairs: Independent No AD; drives; community ambulator PT Evaluation-Current Subjective Agrees to PT. Reports he is weak. Objective Patient Orientation: Person, Place, Time, Mumbles Attachments: Oxygen (in place during and post treatment. ), IV Bed alarm--activated post treatment. ROM/Strength ROM Lower Extremities wNL Strength Lower Extremities grossly 4-/5 Integumentary/Posture Bowel Incontinence: No Bladder Incontinence: Yes Posture rounded shoulders and forward head. Sensory Vision: Functional Hearing: Functional Hand Dominance: Right Sensation Right Lower Extremit: Intact Sensation Left Lower Extremity: Intact Transfers Sit to Lying (QC): 3 Lying to Sitting/Side of Bed(Q: 3 Sit to Stand (QC): 3 sit to stand x 3 reps with FWW with min assist with work on upright posture and deep breathing. Balance Sitting Static: Good Sitting Dynamic: Good Standing Static: Fair Standing Dynamic: Fair Assessment/Needs Admitted with weakness post dx of flu and UTI. Will beneift from skilled PT to address weakness and progress strength and mobility. Rehab Potential: Good PT Residential Goals Bistro Server Goals PT Residential Goals Time Frame: Jan 02, 2020 Sit to Lying (QC): 5 Lying-Sitting on Side/Bed(QC): 5 Sit to Stand (QC): 5 Chair/Hlo-gx-Tecdh Xfer(QC): 5 Walk 150 ft (QC): 5 PT Plan Problem List Problem List: Activity Tolerance, Functional Strength, Safety, Balance, Gait, Transfer, Bed Mobility Treatment/Plan Treatment Plan: Continue Plan of Care Treatment Plan: Bed Mobility, Education, Functional Activity Maria Fernanda, Functional Strength, Gait, Safety, Therapeutic Exercise, Transfers Treatment Duration: Jan 02, 2020 Frequency: 6 times per week Estimated Hrs Per Day: .25 hour per day Patient and/or Family Agrees t: Yes Safety Risks/Education Patient Education: Safety Issues Teaching Recipient: Patient Teaching Methods: Discussion Response to Teaching: Reinforcement Needed Discharge Recommendations Therapy Discharge Recommendati: Post Acute PT Time/GCodes Time In: 945 Time Out: 1010 Total Billed Treatment Time: 25 Total Billed Treatment visit EVM 15 FA 10 TICO ARCEO PT Dec 26, 2019 10:15
--- NOTE | 2019-12-26 11:47 | History & Physical-Hospitalist ---
History of Present Illness HPI/Chief Complaint Levon Spring is a 79-year-old male with past medical history of hypertension, diabetes on insulin pump, hyperlipidemia, atrial fibrillation on Coumadin, kidney transplant on immunosuppression, BPH, heart failure, who presented after a fall at home. He was evaluated in the ER yesterday morning and was discharged home, but he returned to the ER because his daughter felt he was getting worse. Upon my examination, he asks when he can go home. He denies any complaints. He denies fevers. He denies shortness of breath. He has been coughing. He denies chest pain. He denies abdominal pain. He denies dysuria. He reports urinary frequency. He has been having trouble with losing urine and has been wearing incontinence briefs at home. I spoke with his daughter and she says she recently moved him here from [place]. He was going to have to move into an assisted living if she couldn't take him. He followed with multiple doctors at [place]. He has a history of diabetes and is on an insulin pump. He has a history of heart failure and recently established with Dr. Hutchinson. He has a history of kidney transplant 24 years ago and is on prednisone and cyclosporine. Source: patient Exam Limitations: no limitations Date Seen 12/26/19 Time Seen by a Provider: 09:45 Attending Physician Kael Henderson MD PCP Jersey Tee MD Referring Physician Date of Admission Dec 25, 2019 at 17:08 Home Medications & Allergies Home Medications Reviewed patient Home Medication Reconciliation performed by pharmacy medication reconciliations chief technician and/or nursing. Patients Allergies have been reviewed. Allergies Allergies Coded Allergies amlodipine (Verified Allergy, Unknown, 12/16/19) atorvastatin (Verified Allergy, Unknown, 12/16/19) Past Lpcjejy-Lwakpl-Csnvek Hx Past Med/Social Hx: Reviewed Nursing Past Med/Soc Hx Patient Social History Alcohol Use: Denies Use Recreational Drug Use: No 2nd Hand Smoke Exposure: No Recent Foreign Travel: No Contact w/other who traveled: No Recent Hopitalizations: No Recent Infectious Disease Expo: No Seasonal Allergies Seasonal Allergies: No Past Medical History Surgeries: CABG, Eye Surgery, Gallbladder, Kidney Transplant, Tonsillectomy, Valve Replacement Cardiac: Atrial Fibrillation, Heart Attack, High Cholesterol, Hypertension, Valvular Heart Disease Genitourinary: Renal Failure Gastrointestinal: Gastrointestinal Bleed Musculoskeletal: Osteoporosis Endocrine: Diabetes, Insulin dep History of Blood Disorders: Yes (ANEMIA) Review of Systems Constitutional: weakness EENTM: no symptoms reported Respiratory: cough Cardiovascular: no symptoms reported Gastrointestinal: no symptoms reported Genitourinary: frequency Musculoskeletal: no symptoms reported Skin: no symptoms reported Psychiatric/Neurological: No Symptoms Reported Physical Exam Physical Exam Vital Signs Vital Signs - First Documented 12/25/19 11:18 Temp 38.7 Pulse 95 Resp 20 B/P (MAP) 134/73 (93) Pulse Ox 93 O2 Delivery Nasal Cannula O2 Flow Rate 2.00 Capillary Refill : Less Than 3 Seconds Height, Weight, BMI Height: '" Weight: lbs. oz. kg; 27.42 BMI Method: General Appearance: No Apparent Distress, Chronically ill, Other (unkempt) HEENT: PERRL/EOMI, Pharynx Normal Neck: Normal Inspection, Supple Respiratory: Lungs Clear, Normal Breath Sounds, No Respiratory Distress Cardiovascular: No Edema, No Murmur, Irregularly Irregular (regular rate) Gastrointestinal: Normal Bowel Sounds, Non Tender, Soft Extremity: Normal Inspection, Non Tender, No Pedal Edema Neurologic/Psychiatric: Alert, Oriented x3, No Motor/Sensory Deficits, Normal Mood/Affect Skin: Normal Color, Warm/Dry Lymphatic: No Adenopathy Results Results/Procedures Labs Laboratory Tests 12/25/19 11:35 12/26/19 05:32 Patient resulted labs reviewed. Imaging: Reviewed Imaging Report Assessment/Plan Admission Diagnosis Severe sepsis due to urinary tract infection Admission Status: Inpatient Order (span 2 midnights) Reason for Inpatient Admission: UTI requiring IV antibiotics CARLIE requiring IV fluids Assessment and Plan Severe sepsis due to UTI Influenza A and B infection Acute kidney injury superimposed on chronic kidney disease Lactic acidosis History of kidney transplant on immunosuppression SIRS+ with leukocytosis, fever, tachycardia Septic source identified as UTI UA consistent with UTI Recent Klebsiella UTI, multiple recent UTIs Urine culture pending, probable Klebsiella Started on Rocephin Transition to Meropenem for recurrent, possibly resistant, UTI Check procalcitonin Blood cultures pending Lactic acidosis on arrival, resolved now BUN/Cr worsening today, BUN 60, Cr 2.16 Continue IV fluids Influenza A and B positive Started on Tamiflu Continue prednisone and cyclosporine Atrial fibrillation on coumadin HTN Heart failure Consult Cardiology, appreciate assistance INR 3 Continue coumadin Continue metoprolol and nifedipine Anemia Likely due to chronic kidney disease Hgb 8.6 Obtain iron studies, B12/folate levels T2DM with hyperglycemia Continue insulin pump Sliding scale DVT Prophylaxis: already receiving therapeutic anticoagulation Diagnosis/Problems Diagnosis/Problems (1) Severe sepsis with acute organ dysfunction Status: Acute (2) UTI (urinary tract infection) Status: Acute Qualifiers: Urinary tract infection type: acute cystitis Hematuria presence: with hematuria Qualified Codes: N30.01 - Acute cystitis with hematuria (3) Recurrent urinary tract infection Status: Acute (4) Acute kidney injury superimposed on chronic kidney disease Status: Acute (5) Lactic acidosis Status: Acute (6) Influenza A Status: Acute (7) Influenza B Status: Acute (8) Anemia Status: Chronic (9) T2DM (type 2 diabetes mellitus) Status: Chronic Qualifiers: Diabetes mellitus terminal press operator insulin use: with [facility] use Diabetes mellitus complication status: with hyperglycemia Qualified Codes: E11.65 - Type 2 diabetes mellitus with hyperglycemia; Z79.4 - FDC (current) use of insulin (10) Paroxysmal A-fib Status: Chronic (11) Anticoagulated on Coumadin Status: Chronic (12) Kidney transplant recipient Status: Chronic (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
[2019-12-26 12:00] VITALS: BP 100/56
[2019-12-26] MEDS ORDERED: cefTRIAXone 1,000 MG/SWFI 10 ML IV PUSH IV SCH ×2 (13:00)
[2019-12-26] MEDS: diphenhydrAMINE 25 MG TAB (BENADRYL) PO PRN ×2 (13:10→18:40)
[2019-12-26] MEDS: inSUlin ASPART (NovoLOG) 1 UNIT/0.01 ML (CHARGE PER UNIT) SC SCH ×3 (13:10→21:14)
--- NOTE | 2019-12-26 14:33 | NUR ---
CALLED PATIENT'S DAUGHTER TEODORO. SHE WILL BRING HIS CYCLOSPORIN AND ALL HIS HOME MEDICATIONS FOR VERIFICATION.
[2019-12-26 16:06] VITALS: BP 121/59
[2019-12-26] MEDS: warFARin 5 MG (COUMADIN) TAB PO SCH (18:40)
[2019-12-26 19:45] VITALS: BP 139/76
[2019-12-26] MEDS ORDERED: OSELTAMIVIR 30 MG (TAMIFLU) CAPSULE PO SCH (21:00)
[2019-12-26] MEDS: ROSUVASTATIN 20 MG (CRESTOR) TABLET PO SCH (21:13)
[2019-12-26] MEDS: TAMSULOSIN 0.4 MG (FLOMAX) CAP PO SCH (21:13)
[2019-12-27] VITALS: BP 145/82
[2019-12-27] MEDS: diphenhydrAMINE 25 MG TAB (BENADRYL) PO PRN ×2 (00:44→08:17)
[2019-12-27 04:09] VITALS: BP 150/66
[2019-12-27] MEDS: LACTATED RINGERS 1,000 ML IV SCH ×3 (05:33→17:09)
[2019-12-27] MEDS: inSUlin ASPART (NovoLOG) 1 UNIT/0.01 ML (CHARGE PER UNIT) SC SCH ×4 (06:07→21:59)
[2019-12-27 06:19] LABS: BASOPHILS % (AUTO) 0 % (0-10); EOSINOPHILS # (AUTO) 0.1 10^3/uL (0.0-0.3); EOSINOPHILS % (AUTO) 1 % (0-10); HEMATOCRIT 28 % (40-54); HEMOGLOBIN 8.8 g/dL (13.3-17.7); LYMPHOCYTES # (AUTO) 0.5 10^3/uL (1.0-4.0); LYMPHOCYTES % (AUTO) 5 % (12-44); MEAN CORPUSCULAR HEMOGLOBIN 27 pg (25-34); MEAN CORPUSCULAR HGB CONC 32 g/dL (32-36); MEAN CORPUSCULAR VOLUME 85 fL (80-99); MEAN PLATELET VOLUME 10.8 fL (9.0-12.2); MONOCYTES # (AUTO) 0.7 10^3/uL (0.0-1.0); MONOCYTES % (AUTO) 6 % (0-12); NEUTROPHILS # (AUTO) 9.3 10^3/uL (1.8-7.8); NEUTROPHILS % (AUTO) 88 % (42-75); PLATELET COUNT 230 10^3/uL (130-400); WHITE BLOOD COUNT 10.6 10^3/uL (4.3-11.0)
[2019-12-27 06:29] LABS: INR 2.9 (0.8-1.4); PROTHROMBIN TIME PATIENT 30.5 SEC (12.2-14.7)
[2019-12-27 06:37] LABS: CALCIUM 8.9 MG/DL (8.5-10.1); CREATININE SERUM 2.26 MG/DL (0.60-1.30); POTASSIUM 4.7 MMOL/L (3.6-5.0)
[2019-12-27] MEDS ORDERED: PATIENT MAY USE OWN MEDS, ALL MC SCH (07:45)
[2019-12-27 08:00] VITALS: BP 125/62
[2019-12-27] MEDS: NIFEdipine ER 30 MG (PROCARDIA XL) TAB PO SCH (08:17)
[2019-12-27] MEDS: meTOprolol TARTRATE 25 MG (LOPRESSOR) TABLET PO SCH ×2 (08:17→21:58)
[2019-12-27] MEDS: PANTOPRAZOLE 40 MG (PROTONIX) TAB PO SCH (08:17)
[2019-12-27] MEDS: SENNOSIDES 8.6 MG (SENOKOT) TAB PO SCH ×2 (08:17→21:58)
[2019-12-27] MEDS: eZETimibe 10 MG (ZETIA) TABLET PO SCH (08:17)
[2019-12-27] MEDS: ASPIRIN 81 MG CHEW (CHILDREN'S ASA) PO SCH (08:17)
[2019-12-27] MEDS: DOCUSATE SODIUM 100 MG (COLACE) CAP PO SCH ×2 (08:17→21:58)
[2019-12-27] MEDS: MEROPENEM 1,000 MG in WATER (STERILE) FOR INJECTION 20 ML IV SCH (08:18)
[2019-12-27] MEDS: predniSONE 1 MG TAB PO SCH (08:27)
[2019-12-27] MEDS: CYCLOSPORINE 25 MG PO SCH ×2 (09:25→21:58)
[2019-12-27 11:21] VITALS: BP 122/57
--- NOTE | 2019-12-27 13:03 | Progress Note - Hospitalist ---
Subjective HPI/CC On Admission Date Seen by Provider: Dec 27, 2019 Time Seen by Provider: 10:40 Levon Spring is a 79-year-old male with past medical history of hypertension, diabetes on insulin pump, hyperlipidemia, atrial fibrillation on Coumadin, kidney transplant on immunosuppression, BPH, heart failure, who presented after a fall at home. He was evaluated in the ER yesterday morning and was discharged home, but he returned to the ER because his daughter felt he was getting worse. Upon my examination, he asks when he can go home. He denies any complaints. He denies fevers. He denies shortness of breath. He has been co ughing. He denies chest pain. He denies abdominal pain. He denies dysuria. He reports urinary frequency. He has been having trouble with losing urine and has been wearing incontinence briefs at home. I spoke with his daughter and she says she recently moved him here from [place]. He was going to have to move into an assisted living if she couldn't take him. He followed with multiple doctors at [facility]. He has a history of diabetes and is on an insulin pump. He has a history of heart failure and recently established with Dr. Hutchinson. He has a history of kidney transplant 24 years ago and is on prednisone and cyclosporine. Subjective/Events-last exam He denies any complaints. He denies any fevers. He denies any shortness of breath or cough. He denies any abdominal pain. He denies any nausea or vomiting. He has been eating and drinking. He has no other concerns. Focused Exam Lactate Level 12/25/19 11:55: Lactic Acid Level 2.47*H 12/25/19 13:33: Lactic Acid Level 1.40 Objective Exam Vital Signs Vital Signs Date Time Temp Pulse Resp B/P (MAP) Pulse Ox O2 Delivery O2 Flow Rate FiO2 12/27/19 11:21 36.8 70 18 122/57 (78) 95 Nasal Cannula 2.00 Capillary Refill : Less Than 3 Seconds General Appearance: No Apparent Distress, WD/WN Respiratory: Lungs Clear, Normal Breath Sounds, No Respiratory Distress Cardiovascular: Regular Rate, Rhythm, No Edema, No Murmur Gastrointestinal: Normal Bowel Sounds, Non Tender, Soft Extremity: Normal Inspection, Non Tender, No Pedal Edema Neurologic/Psychiatric: Alert, Oriented x3, No Motor/Sensory Deficits, Normal Mood/Affect Skin: Normal Color, Warm/Dry Results/Procedures Lab Laboratory Tests 12/27/19 06:00 Patient resulted labs reviewed. Imaging: Reviewed Imaging Report Assessment/Plan Assessment and Plan Assess & Plan/Chief Complaint Severe sepsis Recurrent urinary tract infection Influenza A and B infection Acute kidney injury superimposed on chronic kidney disease History of kidney transplant on immunosuppression Urine culture revealed Klebsiella, sensitive to Rocephin Discontinue Meropenem Transition to Rocephin Blood cultures with no growth BUN/Cr slightly worse today, BUN 66, Cr 2.26 Continue IV fluids Tamiflu Continue prednisone and cyclosporine Atrial fibrillation on coumadin HTN Heart failure Consult Cardiology, appreciate assistance INR 2.9 Continue coumadin Continue metoprolol and nifedipine Anemia Likely due to chronic kidney disease Hgb 8.8, stable T2DM with hyperglycemia Continue insulin pump Sliding scale Delirium Sitter at bedside Appears to be improved Avoid medications which could be delirium triggers, reorient as needed DVT Prophylaxis: already receiving therapeutic anticoagulation Lactic acidosis, resolved Diagnosis/Problems Diagnosis/Problems (1) Severe sepsis with acute organ dysfunction Status: Acute (2) UTI (urinary tract infection) Status: Acute Qualifiers: Urinary tract infection type: acute cystitis Hematuria presence: with hematuria Qualified Codes: N30.01 - Acute cystitis with hematuria (3) Recurrent urinary tract infection Status: Acute (4) Acute kidney injury superimposed on chronic kidney disease Status: Acute (5) Lactic acidosis Status: Acute (6) Influenza A Status: Acute (7) Influenza B Status: Acute (8) Anemia Status: Chronic (9) T2DM (type 2 diabetes mellitus) Status: Chronic Qualifiers: Diabetes mellitus terminal operator insulin use: with senior care use Diabetes mellitus complication status: with hyperglycemia Qualified Codes: E11.65 - Type 2 diabetes mellitus with hyperglycemia; Z79.4 - remote computer terminal operator (current) use of insulin (10) Paroxysmal A-fib Status: Chronic (11) Anticoagulated on Coumadin Status: Chronic (12) Kidney transplant recipient Status: Chronic (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
[2019-12-27 15:41] VITALS: BP 123/60
[2019-12-27] MEDS ORDERED: cefTRIAXone FOR IV USE 2,000 MG in WATER (STERILE) FOR INJECTION 20 ML IV SCH (16:00)
--- NOTE | 2019-12-27 17:00 | NUR ---
THE PATIENT'S DAUGHTER, TEODORO CHAPA. SHE WANTS THE DOCTOR TO LOOK AT THE PATIENT'S LEFT FOOT. SHE SAID HE IS HAVING PAIN AND HAS A CALLUS. YEARS AGO HE HAD RODS PUT IN HIS FEET TO KEEP HIS TOES STRAIGHT. SHE THINKS THE CALLUS HAS SOMETHING TO DO WITH THOSE RODS. SHE ALSO THINKS HE MIGHT LEFT TOE NAIL FUNGUS.
[2019-12-27] MEDS: warFARin 5 MG (COUMADIN) TAB PO SCH (17:09)
--- NOTE | 2019-12-27 17:13 | NUR ---
NOTIFIED DR VOGEL. BLOOD SUGAR IS 453. ORDER: GIVE TOP OF HIS SLIDING SCALE.
[2019-12-27 19:17] VITALS: BP 116/54
[2019-12-27] MEDS ORDERED: OSELTAMIVIR 30 MG (TAMIFLU) CAPSULE PO SCH (21:00)
[2019-12-27] MEDS: TAMSULOSIN 0.4 MG (FLOMAX) CAP PO SCH (21:58)
[2019-12-27] MEDS: ROSUVASTATIN 20 MG (CRESTOR) TABLET PO SCH (21:58)
[2019-12-28 00:57] VITALS: BP 118/69
[2019-12-28] MEDS: LACTATED RINGERS 1,000 ML IV SCH (03:15)
[2019-12-28 04:00] VITALS: BP 126/58
[2019-12-28 06:26] LABS: BASOPHILS % (AUTO) 0 % (0-10); EOSINOPHILS # (AUTO) 0.1 10^3/uL (0.0-0.3); EOSINOPHILS % (AUTO) 1 % (0-10); HEMATOCRIT 23 % (40-54); HEMOGLOBIN 7.4 g/dL (13.3-17.7); LYMPHOCYTES # (AUTO) 0.8 10^3/uL (1.0-4.0); LYMPHOCYTES % (AUTO) 10 % (12-44); MEAN CORPUSCULAR HEMOGLOBIN 27 pg (25-34); MEAN CORPUSCULAR HGB CONC 32 g/dL (32-36); MEAN CORPUSCULAR VOLUME 83 fL (80-99); MEAN PLATELET VOLUME 11.2 fL (9.0-12.2); MONOCYTES # (AUTO) 0.7 10^3/uL (0.0-1.0); MONOCYTES % (AUTO) 8 % (0-12); NEUTROPHILS # (AUTO) 7.1 10^3/uL (1.8-7.8); NEUTROPHILS % (AUTO) 81 % (42-75); PLATELET COUNT 241 10^3/uL (130-400); WHITE BLOOD COUNT 8.7 10^3/uL (4.3-11.0)
[2019-12-28] MEDS: inSUlin ASPART (NovoLOG) 1 UNIT/0.01 ML (CHARGE PER UNIT) SC SCH ×2 (06:31→12:25)
[2019-12-28 06:40] LABS: POTASSIUM 4.9 MMOL/L (3.6-5.0)
[2019-12-28 06:41] LABS: CALCIUM 8.6 MG/DL (8.5-10.1)
[2019-12-28 06:46] LABS: CREATININE SERUM 2.65 MG/DL (0.60-1.30)
[2019-12-28 07:10] LABS: INR 3.7 (0.8-1.4); PROTHROMBIN TIME PATIENT 36.6 SEC (12.2-14.7)
[2019-12-28 08:00] VITALS: BP 130/63
[2019-12-28] MEDS: SENNOSIDES 8.6 MG (SENOKOT) TAB PO SCH (08:33)
[2019-12-28] MEDS: predniSONE 1 MG TAB PO SCH (08:33)
[2019-12-28] MEDS: eZETimibe 10 MG (ZETIA) TABLET PO SCH (08:33)
[2019-12-28] MEDS: PANTOPRAZOLE 40 MG (PROTONIX) TAB PO SCH (08:33)
[2019-12-28] MEDS: meTOprolol TARTRATE 25 MG (LOPRESSOR) TABLET PO SCH (08:34)
[2019-12-28] MEDS: ASPIRIN 81 MG CHEW (CHILDREN'S ASA) PO SCH (08:34)
[2019-12-28] MEDS: NIFEdipine ER 30 MG (PROCARDIA XL) TAB PO SCH (08:34)
[2019-12-28] MEDS: DOCUSATE SODIUM 100 MG (COLACE) CAP PO SCH (08:34)
[2019-12-28] MEDS: CYCLOSPORINE 25 MG PO SCH (08:34)
--- NOTE | 2019-12-28 09:37 | Physical Therapy Daily Note ---
PT Daily Note-Current Subjective Patient is in recliner and states it is evening and he is at [facility]. PT attempted to redirect patient to time and place, however, patient reverted back to original statement. Mental Status Patient Orientation: Confused Attachments: Oxygen, IV Transfers SCALE: Activities may be completed with or without assistive devices. 7-Oexssrmdhu-dnzflja completes the activity by him/herself with no assistance from a helper. 5-Set-up or Clean-up Assistance-helper sets up or cleans up; patient completes activity. [place] assists only prior to or following the activity. 4-Supervision or Touching Assistance-helper provides verbal cues and/or touching/steadying and/or contact guard assistance as patient completes activity. Assistance may be provided throughout the activity or intermittently. 3-Partial/Moderate Assistance-helper does LESS THAN HALF the effort. [place] lifts, holds or supports trunk or limbs, but provides less than half the effort. 2-Substantial/Maximal Assistance-helper does MORE THAN HALF the effort. [place] lifts or holds trunk or limbs and provides more than half the effort. 4-Cbbgvygsm-andlmn does ALL the effort. Patient does none of the effort to complete the activity. Or, the assistance of 2 or more helpers is required for the patient to complete the activity. If activity was not attempted, code reason: 7-Patient Refused. 9-Not Applicable-not attempted and the patient did not perform the activity before the current illness, exacerbation or injury. 10-Not Attempted due to Environmental Limitations-(lack of equipment, weather restraints, etc.). 88-Not Attempted due to Medical Conditions or Safety Concerns. Sit to Stand (QC): 3 (minimal assist for safety due to patient is unaware of surroundings, IV line and O2 tubing) Toilet Transfer (QC): 3 (same as stated on sit to stand transfer) Gait Training Does the Patient Walk?: Yes Distance: 15' x 4 Walk 10 feet (QC): 3 Gait Assistive Device: FWW PT assist for FWW placement with gait for patient safety and use/functional gait sequence. Treatments PT/OT cotreat due to complexity of patient status. PT address transfers, balance (dynamic and static) and ambulation, while OT address ADL's, dressing/changing clothing and depends due to urinary incontinence. Assessment Physician notified of patient cognitive function this a.m. Patient remained up in recliner with PT placing chair alarm for patient's safety. RN notified. PT Oracle Adf Developer Goals Long-Term Goals PT Oracle Adf Developer Goals Time Frame: Jan 02, 2020 Sit to Lying (QC): 5 Lying-Sitting on Side/Bed(QC): 5 Sit to Stand (QC): 5 Chair/Qfo-mz-Qswdq Xfer(QC): 5 Walk 150 ft (QC): 5 PT Plan Treatment/Plan Treatment Plan: Continue Plan of Care Treatment Plan: Bed Mobility, Education, Functional Activity Maria Fernanda, Functional Strength, Gait, Safety, Therapeutic Exercise, Transfers Treatment Duration: Jan 02, 2020 Frequency: 6 times per week Estimated Hrs Per Day: .25 hour per day Patient and/or Family Agrees t: Yes Time/GCodes Time In: 845 Time Out: 911 Total Billed Treatment Time: 26 Total Billed Treatment 1 visit FA x 2 26 min (cotreat OT) HANNAH CARRENO PT Dec 28, 2019 09:37
[2019-12-28] MEDS ORDERED: IRON SUCROSE 200 MG/10 ML (VENOFER) VIAL IV SCH (09:45)
[2019-12-28] MEDS ORDERED: QUEtiapine 25 MG (SEROquel) TAB IMMEDIATE RELEASE PO NR (09:45)
[2019-12-28] MEDS ORDERED: polyethylene glycoL POWDER 17 GM (MIRALAX) PACK PO NR (10:15)
--- NOTE | 2019-12-28 10:17 | Progress Note - Hospitalist ---
Subjective HPI/CC On Admission Date Seen by Provider: Dec 28, 2019 Time Seen by Provider: 09:00 Levon Spring is a 79-year-old male with past medical history of hypertension, diabetes on insulin pump, hyperlipidemia, atrial fibrillation on Coumadin, kidney transplant on immunosuppression, BPH, heart failure, who presented after a fall at home. He was evaluated in the ER yesterday morning and was discharged home, but he returned to the ER because his daughter felt he was getting worse. Upon my examination, he asks when he can go home. He denies any complaints. He denies fevers. He denies shortness of breath. He has been co ughing. He denies chest pain. He denies abdominal pain. He denies dysuria. He reports urinary frequency. He has been having trouble with losing urine and has been wearing incontinence briefs at home. I spoke with his daughter and she says she recently moved him here from [place]. He was going to have to move into an assisted living if she couldn't take him. He followed with multiple doctors at [facility]. He has a history of diabetes and is on an insulin pump. He has a history of heart failure and recently established with Dr. Hutchinson. He has a history of kidney transplant 24 years ago and is on prednisone and cyclosporine. Subjective/Events-last exam Pt having delirium Seroquel 12.5 mg twice daily was ordered Flu A and Flu B on Tamiflu renal dose Creatinine 2.6 Dr. Hutchinson consult Rocephin for Klebsiella UTI Escobar catheter will be administered because of incontinence and I need to keep track of his urinary output I did speak with his referral line, updated on all clinical information in order to transfer there in case renal failure due to kidney transplant and UTI and flu occurs Denies any significant new issues, he is able to respond to simple questions but keeps his eyes closed Updated his who lives in [place] and daughter Sharmila who lives in [facility] Maintain on lactated ringers, IV fluid at 100cc an hour Review of Systems General: Fatigue, Malaise Neurological: Weakness Focused Exam Lactate Level Objective Exam Vital Signs Vital Signs Date Time Temp Pulse Resp B/P (MAP) Pulse Ox O2 Delivery O2 Flow Rate FiO2 12/28/19 11:46 35.8 83 20 119/68 (85) 95 Nasal Cannula 2.00 Capillary Refill : Less Than 3 Seconds General Appearance: No Apparent Distress, WD/WN, Chronically ill HEENT: PERRL/EOMI, TMs Normal, Normal ENT Inspection, Pharynx Normal, Moist Mucous Membranes Neck: Full Range of Motion, Normal Inspection, Non Tender, Supple, Carotid Bruit Respiratory: Chest Non Tender, Lungs Clear, Normal Breath Sounds, No Accessory Muscle Use, No Respiratory Distress Cardiovascular: Regular Rate, Rhythm, No Edema, No Gallop, No JVD, No Murmur, Normal Peripheral Pulses Gastrointestinal: Normal Bowel Sounds, No Organomegaly, No Pulsatile Mass, Non Tender, Soft Back: Normal Inspection, No CVA Tenderness, No Vertebral Tenderness Extremity: Normal Capillary Refill, Normal Inspection, Normal Range of Motion, Non Tender, No Calf Tenderness, No Pedal Edema Neurologic/Psychiatric: No Motor/Sensory Deficits, Normal Mood/Affect, Disoriented Skin: Normal Color, Warm/Dry Lymphatic: No Adenopathy Results/Procedures Lab Laboratory Tests 12/28/19 05:33 Patient resulted labs reviewed. Imaging: Reviewed Imaging Report Assessment/Plan Assessment and Plan Assess & Plan/Chief Complaint Assessment: Acute delirium Flu A and Flu B UTI KLEBSIELLA Renal transplant history CHF Acute renal failure Chronic renal insufficiency Chronic anemia Aortic valve replacement Coumadin therapy Plan: Tamiflu gentle IV fluids [facility] referral Monitor creatinine closely Rocephin for UTI Diagnosis/Problems Diagnosis/Problems (1) Influenza A Status: Acute (2) Influenza B Status: Acute (3) UTI (urinary tract infection) Status: Acute Qualifiers: Urinary tract infection type: acute cystitis Hematuria presence: with hematuria Qualified Codes: N30.01 - Acute cystitis with hematuria (4) 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 (5) Anticoagulated on Coumadin Status: Chronic (6) Paroxysmal A-fib Status: Chronic (7) BPH (benign prostatic hyperplasia) Status: Chronic (8) HLD (hyperlipidemia) Status: Chronic (9) Acute kidney injury superimposed on chronic kidney disease Status: Acute (10) HTN (hypertension) Status: Chronic (11) T2DM (type 2 diabetes mellitus) Status: Chronic Qualifiers: Diabetes mellitus prison insulin use: with prison use Diabetes mellitus complication status: with hyperglycemia Qualified Codes: E11.65 - Type 2 diabetes mellitus with hyperglycemia; Z79.4 - lobsterman (current) use of insulin (12) Recurrent urinary tract infection Status: Acute Clinical Quality Measures DVT/VTE Risk/Contraindication: Risk Factor Score Per Nursin RFS Level Per Nursing on Admit: 4+=Very High ANAMARIA PRECIADO DO Dec 28, 2019 10:17
[2019-12-28 10:24] LABS: ALBUMIN 2.9 GM/DL (3.2-4.5); BILIRUBIN,DIRECT 0.4 MG/DL (0.0-0.3); BILIRUBIN,INDIRECT 0.2 MG/DL; BILIRUBIN,TOTAL 0.6 MG/DL (0.1-1.0); TOTAL PROTEIN 5.8 GM/DL (6.4-8.2)
--- NOTE | 2019-12-28 10:36 | Occupational Therapy Eval ---
OT Evaluation-General/PLF Medical Diagnosis Admission Date Dec 25, 2019 at 17:08 Medical Diagnosis: Flu; UTI Onset Date: Dec 25, 2019 Therapy Diagnosis Therapy Diagnosis: Weakness Precautions Precautions/Isolations: Contact Isolation, Droplet Isolation, Fall Prevention Referral Physician: Carol Cotter Reason: Activity Tolerance, Self Care, Evaluation/Treatment, Strengthening/ROM Medical History Pertinent Medical History: Atrial Fib, HTN Additional Medical History Insulin pump, kidney transplant, heart failure, CABG Current History Pt. fell at home. Brought to ER. Found to have sever sepsis from UTI. Also tested positive for Flu A and B. Reviewed History: Yes Social History Home: Single Level ADL-Prior Level of Function SCALE: Activities may be completed with or without assistive devices. 7-Ohkipwsyxm-jjwrboe completes the activity by him/herself with no assistance from a helper. 5-Set-up or Clean-up Assistance-helper sets up or cleans up; patient completes activity. [place] assists only prior to or following the activity. 4-Supervision or Touching Assistance-helper provides verbal cues and/or touching/steadying and/or contact guard assistance as patient completes activity. Assistance may be provided throughout the activity or intermittently. 3-Partial/Moderate Assistance-helper does LESS THAN HALF the effort. [place] lifts, holds or supports trunk or limbs, but provides less than half the effort. 2-Substantial/Maximal Assistance-helper does MORE THAN HALF the effort. [place] lifts or holds trunk or limbs and provides more than half the effort. 0-Npcnisxos-bnqtkl does ALL the effort. Patient does none of the effort to complete the activity. Or, the assistance of 2 or more helpers is required for the patient to complete the activity. If activity was not attempted, code reason: 7-Patient Refused. 9-Not Applicable-not attempted and the patient did not perform the activity bef ore the current illness, exacerbation or injury. 10-Not Attempted due to Environmental Limitations-(lack of equipment, weather r estraints, etc.). 88-Not Attempted due to Medical Conditions or Safety Concerns. ADL PLOF Comments Pt. is confused at time of evaluation. Pt. does not know that he is in the hospital. Pt. is unable to state what his previous level of function is. Self Care: Unknown Functional Cognition: Unknown OT Current Status Subjective No pain reported. Pt. indicates that his had to go back home, and that he will be sleeping "here" tonight. Pt. does not understand he is in the hospital. Appearance Pt. up in chair when therapy came into room. Pt. had spilled liquid all over gown. Mental Status/Objective Patient Orientation: Confused Attachments: IV Current Hand Dominance: Right ADL-Treatment Oral Hygiene (QC): 7 (Pt. declines brushing teeth in bathroom.) On/Off Footwear (QC): 2 Toileting Hygiene (QC): 2 Other Treatments OT/PT co treated due to level of skilled assist needed. Pt. confused in chair. Has spilled breakfast on him. Pt. agrees with encouragement to ambulate to bathroom. PT facilitated transfers and mobility while OT worked on ADLs. Pt. requires min assist to ambulate, and max cues for safety. Transfers to toilet and OT doffed brief. Noted pt. incontinent of urine. Pt. does not have to urinate, and so he was handed a wet wipe to cleanse self. Pt. confused and does not know what to do. OT dons fresh brief and gown. Max cues due to impulsivity. Pt. declines all attempts to wash hands standing at sink. Pt. ambulates back to chair in room. Chair alarm placed. Education OT Patient Education: Correct positioning, Modified ADL techniques, Progress toward Goal/Update tx plan, Purpose of tx/functional activities, Reviewed precautions, Rehab process, Transfer techniques Teaching Recipient: Patient Teaching Methods: Demonstration, Discussion Response to Teaching: Reinforcement Needed OT Short Term Goals Short Term Goals Time Frame: Dec 28, 2019 OT Black Top Roller Goals Residential Goals Time Frame: Jan 11, 2020 Eating (QC): 6 Oral Hygiene (QC): 4 Toileting Hygiene (QC): 4 Upper Body Dressing (QC): 4 Lower Body Dressing (QC): 3 On/Off Footwear (QC): 3 Additional Goals: 1-Demonstrate ADL Tasks, 2-Verbalize Understanding, 3- ImproveStrength/Maria Fernanda 1=Demonstrate adherence to instructed precautions during ADL tasks. 2=Patient will verbalize/demonstrate understanding of assistive devices/modifications for ADL. 3=Patient will improve strength/tolerance for activity to enable patient to perform ADL's. OT Education/Plan Problem List/Assessment Assessment: Decreased Activ Tolerance, Decreased Safety Aware, Decreased UE Strength, Dependent Transfers, Impaired Cognition, Impaired Funct Balance, Impaired I ADL's, Impaired Self-Care Skills Discharge Recommendations Plan/Recommendations: Continue POC Therapy Discharge Recommendati: 24 Hour Supervision Treatment Plan/Plan of Care Treatment,Training & Education: Yes Patient would benefit from OT for education, treatment and training to promote independence in ADL's, mobility, safety and/or upper extremity function for ADL's. Plan of Care: ADL Retraining, Functional Mobility, UE Funct Exercise/Act Treatment Duration: Jan 11, 2020 Frequency: 5 times per week Estimated Hrs Per Day: .25 hour per day Agreement: Yes Rehab Potential: Fair Time/GCodes Start Time: 08:45 Stop Time: 09:00 Total Time Billed (hr/min): 15 Billed Treatment Time 1, EVH x 15minutes Co-treatment with PT. Please see above note for designated roles. ROHIT BROWN OT Dec 28, 2019 10:36
--- NOTE | 2019-12-28 11:03 | Consultation-Cardiology ---
HPI-Cardiology Cardiology Consultation: Date of Consultation 12/28/19 Time Seen by a Provider: 11:15 Date of Admission 12-25-2019 Attending Physician Terrie Medina MD Admitting Physician Jersey Tee MD Consulting Physician RICHAR AGUDELO HPI: Chief Complaint: CHF Mr. Spring is a 79 yr old male admitted to [facility] from the ED. He reports increasing SOB over the last few days at home. He reports increasing urinary frequency with decreased output. He denies any c/o CP, palpitations, syncope, near syncope or LE swelling. He denies any fever or chills. He denies any LE swelling. Review of Systems-Cardiology Review of Systems Constitutional: No chills, No fever; malaise Eyes: No vision change Ears/Nose/Throat: No epistaxis, No recent hearing loss Respiratory: As described under HPI Cardiovascular: As described under HPI Gastrointestinal: No constipation, No diarrhea, No nausea, No vomiting Genitourinary: As described under HPI Musculoskeletal: joint pain Skin: No rash on exposed areas, No ulcerations on exposed areas Psychiatric/Neurological: No anxiety, No depression, No seizure, No focal weakness, No syncope Hematologic: No bleeding abnormalities SSO-Tnwhnd-Mhcixw Hx Patient Social History Alcohol Use: Denies Use Recreational Drug Use: No 2nd Hand Smoke Exposure: No Recent Foreign Travel: No Recent Infectious Disease Expo: No Hospitalization with Isolation: Denies Past Medical History PMH As described under Assessment. Family Medical History Family Medical History: Reports father had CVA and HTN. Brother had CAD and HTN. Allergies and Home Medications Allergies Coded Allergies: amlodipine (Verified Allergy, Unknown, 12/16/19) atorvastatin (Verified Allergy, Unknown, 12/16/19) Home Medications Aspirin 81 Mg Tab.chew, 81 MG PO DAILY, (Reported) Calcium Carbonate/Vitamin D3 1 Each Tablet, 1 TAB PO DAILY, (Reported) Ceftriaxone Na/Dextrose,Iso 1 Gm/50 Ml Piggyback, 1 GM IV DAILY Prescribed by: ANAMARIA PRECIADO on 12/28/19 1352 Cyclosporine 25 Mg Capsule, 75 MG PO BID, (Reported) Ezetimibe 10 Mg Tablet, 10 MG PO DAILY, (Reported) Ferrous Gluconate 236 Mg Tablet, 236 MG PO DAILY, (Reported) Metoprolol Tartrate 25 Mg Tablet, 25 MG PO BID, (Reported) Multivitamin 1 Each Tablet, 1 EACH PO DAILY, (Reported) Nifedipine 30 Mg Tab.er.24, 30 MG PO DAILY, (Reported) [place]-3 Fatty Acids/Fish Oil 1 Each Capsule.dr, 1 EACH PO DAILY, (Reported) Oseltamivir Phosphate 30 Mg Capsule, 30 MG PO HS Prescribed by: ANAMARIA PRECIADO on 12/28/19 1352 Pantoprazole Sodium 40 Mg Tablet.dr, 40 MG PO BID, (Reported) Prednisone 1 Mg Tab, 2 MG PO DAILY, (Reported) Quetiapine Fumarate 25 Mg Tablet, 12.5 MG PO BID Prescribed by: ANAMARIA PRECIADO on 12/28/19 1352 Rosuvastatin Calcium 20 Mg Tablet, 20 MG PO HS, (Reported) Tamsulosin HCl 0.4 Mg Cap, 0.4 MG PO HS, (Reported) Vit C/E/Zn/Coppr/Lutein/Zeaxan 1 Each Capsule, 1 EACH PO BID, (Reported) Warfarin Sodium 5 Mg Tablet, 5 MG PO HS, (Reported) Patient Home Medication List Home Medication List Reviewed: Yes Physical Exam-Cardiology Physical Exam Vital Signs/I&O 12/29/19 00:00 Intake Total 400 ml Output Total 300 ml Balance 100 ml Capillary Refill : Less Than 3 Seconds Constitutional: AAO x 3, well-developed, well-nourished HEENT: PERRL, hard of hearing, oral hygience is good Neck: No carotid bruit; carotid pulses are 2 + bilaterally Respiratory: No accessory muscle use, No respiratory distress; other (good air entry) Cardiovascular: irregularly irregular; No JVD; S1 and S2, systolic murmur Gastrointestinal: No tender; soft, round, audible bowel sounds Extremities: no lower extremity edema bilateral Neurologic/Psychiatric: grossly intact (moves all extremities) Skin: No rash on exposed areas, No ulcerations on exposed areas Data Review Labs Laboratory Tests 12/28/19 12:06: Glucometer 369H Microbiology 12/25/19 Blood Culture - Preliminary, Resulted No growth 12/25/19 Urine Culture - Final, Complete Klebsiella pneumoniae 12/25/19 Influenza Types A,B Antigen (JT) - Final, Complete Radiology NAME: [facility] REC#: [id number] PT STATUS: ADM IN : 1940 PHYSICIAN: MELLISA CORDERO DO ADMIT DATE: 12/25/19 Signed Date of Exam:12/25/19 CHEST 1 VIEW AP/PA ONLY INDICATION: Cough and malaise. Frontal chest obtained at 11:36 a.m. and compared to 12/16/2019. FINDINGS: There is poststernotomy change with cardiomegaly. There is central vascular congestion with interstitial edema with some mild bibasilar infiltrate. There is no pneumothorax or pleural fluid. Old left-sided rib fracture is noted. IMPRESSION: Cardiomegaly with poststernotomy change with central vascular congestion and mild interstitial edema. There are mild bibasilar infiltrates. There is no pneumothorax or pleural fluid. 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 Olivia at [facility]. CABG first and then Ao V replacement in two separate surgeries in [place], [place] Chronic warfarin anticoag - supra-therapeutic INR ETOH usage (reports a beer and one whiskey a week) Discussion and Recomendations Acute on chronic CHF - likely diastolic, improved - echocardiogram today Acute on chronic renal failure UTI with sepsis - management per medical services Influenza A and B - management per medical services Continue home medications including BB and statin Resume ASA 81mg d/t known h/o CAD with CABG Supra-therapeutic INR - monitor warfarin closely - hold today Continue OAC d/t mechanical AoVR and chronic a-fib for stroke prophylaxis Worsening H/H - management per medical services Further recs will be based on his hospital course We would like to thank medical services for this consult Clinical Quality Measures DVT/VTE Risk/Contraindication: Risk Factor Score Per Nursin RFS Level Per Nursing on Admit: 4+=Very High RICHAR BRYANT Dec 28, 2019 11:03
[2019-12-28 11:46] VITALS: BP 119/68
--- NOTE | 2019-12-28 11:50 | Progress Note ---
A[employer] SHEETS MED STUDENT 12/28/19 1150: Progress Note CC: AMS HPI: This is a 79 YO male with history of HTN, DM, HLD, Afib on Coumadin, kidney transplant on immunosuppression, BPH and heart failure who came to the ED for a fall on 12/24 and was discharged after evaluation. He was brought back to the ER by his daughter hours later because she felt like he was getting worse. Workup showed UTI and dehydration, so pt was admitted and started on Rocephin. Pt was also positive for Influenza A and B, so he was started on Tamiflu. Cyclosporine and prednisone continued d/t kidney transplant. Creatinine on admission was 1.64 and today is 2.65. INR today was 3.7, so Coumadin was held. Today, pt is becoming delirious per nurse and he thinks he is in a restaurant and asks if we sell t-shirts. Pt is from [place] and normally receives all of his medical care from [place], but moved to [place] with his daughter. Assessment/Plan: sepsis secondary to UTI -Rocephin -IV fluids Influenza A and B -Tamiflu dehydration -IV fluids anemia -test for occult blood -monitor labs hx kidney transplant -monitor creatinine -consult [facility] transplant team for possible transfer immunosuppression -continue prednisone and cyclosporine delirium -Seroquel -CT head diabetes -insulin pump heart failure -Lopressor and Procardia -consult cardiology Afib on Coumadin -monitor INR Elevated INR at 3.7 -hold Coumadin YING PRECIADO DO 12/29/19 0509: Supervisory-Addendum Brief Verification & Attestation Participated in pt care: history, MDM, physical Personally performed: exam, history, MDM, supervision of care Care discussed with: Medical Student Procedures: n/a Results interpretation: Verified all documentation Verification and Attestation of Medical Student E/M Service A medical student performed and documented this service in my presence. I reviewed and verified all information documented by the medical student and made modifications to such information, when appropriate. I personally performed the physical exam and medical decision making. Ying Preciado, Dec 29, 2019,05:08 [employer] STUDENT Dec 28, 2019 11:50 YING PRECIADO DO Dec 29, 2019 05:09
[2019-12-28] MEDS ORDERED: OSEL30CA PO (13:52)
[2019-12-28] MEDS ORDERED: CEFT1PIG IV (13:52)
[2019-12-28] MEDS ORDERED: QUET25TA73 PO (13:52)
--- NOTE | 2019-12-28 13:53 | Discharge Summary ---
Discharge Summary Hospital Course Was the Problem List Reviewed?: Yes Problems/Dx: (1) Severe sepsis with acute organ dysfunction Status: Acute (2) UTI (urinary tract infection) Status: Acute Qualifiers: Qualified Codes: N30.01 - Acute cystitis with hematuria (3) Recurrent urinary tract infection Status: Acute (4) Acute kidney injury superimposed on chronic kidney disease Status: Acute (5) Lactic acidosis Status: Acute (6) Influenza A Status: Acute (7) Influenza B Status: Acute (8) Anemia Status: Chronic (9) T2DM (type 2 diabetes mellitus) Status: Chronic Qualifiers: Qualified Codes: E11.65 - Type 2 diabetes mellitus with hyperglycemia; Z79.4 - [facility] (current) use of insulin (10) Paroxysmal A-fib Status: Chronic (11) Anticoagulated on Coumadin Status: Chronic (12) Kidney transplant recipient Status: Chronic (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 Admitted placed on IVF and Cardiology consulted. Confusion increased as did his creatinine prompting [facility] transfer. CC: AMS HPI: This is a 79 YO male with history of HTN, DM, HLD, Afib on Coumadin, kidney transplant on immunosuppression, BPH and heart failure who came to the ED for a fall on 12/24 and was discharged after evaluation. He was brought back to the ER by his daughter hours later because she felt like he was getting worse. Workup showed UTI and dehydration, so pt was admitted and started on Rocephin. Pt was also positive for Influenza A and B, so he was started on Tamiflu. Cyclosporine and prednisone continued d/t kidney transplant. Creatinine on admission was 1.64 and today is 2.65. INR today was 3.7, so Coumadin was held. Today, pt is becoming delirious per nurse and he thinks he is in a restaurant and asks if we sell t-shirts. Pt is from [place] and normally receives all of his medical care from [place], but moved to [place] with his daughter. Assessment/Plan: sepsis secondary to UTI -Rocephin -IV fluids Influenza A and B -Tamiflu dehydration -IV fluids anemia -test for occult blood -monitor labs hx kidney transplant -monitor creatinine -consult [facility] transplant team for possible transfer immunosuppression -continue prednisone and cyclosporine delirium -Seroquel -CT head diabetes -insulin pump heart failure -Lopressor and Procardia -consult cardiology Afib on Coumadin -monitor INR Elevated INR at 3.7 -hold Coumadin Labs and Pending Lab Test: Laboratory Tests 12/27/19 17:09: Glucometer 453*H 12/27/19 21:04: Glucometer 370H 12/28/19 05:14: Glucometer 380H 12/28/19 05:33: White Blood Count 8.7, Red Blood Count 2.79L, Hemoglobin 7.4L, Hematocrit 23L, Mean Corpuscular Volume 83, Mean Corpuscular Hemoglobin 27, Mean Corpuscular Hemoglobin Concent 32, Red Cell Distribution Width 19.0H, Platelet Count 241, Mean Platelet Volume 11.2, Immature Granulocyte % (Auto) 0, Neutrophils (%) (Auto) 81H, Lymphocytes (%) (Auto) 10L, Monocytes (%) (Auto) 8, Eosinophils (%) (Auto) 1, Basophils (%) (Auto) 0, Neutrophils # (Auto) 7.1, Lymphocytes # (Auto) 0.8L, Monocytes # (Auto) 0.7, Eosinophils # (Auto) 0.1, Basophils # (Auto) 0.0, Immature Granulocyte # (Auto) 0.0, Prothrombin Time 36.6H, INR Comment 3.7H, Sodium Level 130L, Potassium Level 4.9, Chloride Level 100, Carbon Dioxide Level 17L, Anion Gap 13, Blood Urea Nitrogen 74H, Creatinine 2.65H, Estimat Glomerular Filtration Rate 23, BUN/Creatinine Ratio 28, Glucose Level 387H, Calcium Level 8.6, Total Bilirubin 0.6, Direct Bilirubin 0.4H, Indirect Bilirubin 0.2, Aspartate Amino Transf (AST/SGOT) 64H, Alanine Aminotransferase (ALT/SGPT) 36, Alkaline Phosphatase 100, Total Protein 5.8L, Albumin 2.9L 12/28/19 12:06: Glucometer 369H Microbiology 12/25/19 Blood Culture - Preliminary, Resulted No growth 12/25/19 Urine Culture - Final, Complete Klebsiella pneumoniae 12/25/19 Influenza Types A,B Antigen (JT) - Final, Complete Home Meds Active Quetiapine Fumarate 25 Mg Tablet 12.5 Mg PO BID 2 Days Ceftriaxone 1 gm-D5w Bag (Ceftriaxone Na/Dextrose,Iso) 1 Gm/50 Ml Piggyback 1 Gm IV DAILY 5 Days Tamiflu (Oseltamivir Phosphate) 30 Mg Capsule 30 Mg PO HS 3 Days Reported Iron (Ferrous Gluconate) 236 Mg Tablet 236 Mg PO DAILY Preservision Areds 2 Softgel (Vit C/E/Zn/Coppr/Lutein/Zeaxan) 1 Each Capsule 1 Each PO BID Ezetimibe 10 Mg Tablet 10 Mg PO DAILY Multivitamin 1 Each Tablet 1 Each PO DAILY Cyclosporine 25 Mg Capsule 75 Mg PO BID Calcium + Vitamin D Tablet (Calcium Carbonate/Vitamin D3) 1 Each Tablet 1 Tab PO DAILY Lasix (Furosemide) 40 Mg Tablet 40 Mg PO DAILY Aspirin 81 Mg Tab.chew 81 Mg PO DAILY Warfarin Sodium 5 Mg Tablet 5 Mg PO HS Pantoprazole Sodium 40 Mg Tablet.dr 40 Mg PO BID Flomax (Tamsulosin HCl) 0.4 Mg Cap 0.4 Mg PO HS Rosuvastatin Calcium 20 Mg Tablet 20 Mg PO HS Prednisone 1 Mg Tab 2 Mg PO DAILY [place] 3 Fish Oil Softgel ([place]-3 Fatty Acids/Fish Oil) 1 Each Capsule.dr 1 Each PO DAILY Nifedipine ER (Nifedipine) 30 Mg Tab.er.24 30 Mg PO DAILY Metoprolol Tartrate 25 Mg Tablet 25 Mg PO BID Assessment/Pt Instructions [facility] transfer Discharge Planning: <30 minutes discharge planning Discharge Instructions Pneumonia Vaccine Order Indica: Yes Discharge Physical Examination Vital Signs Vital Signs Date Time Temp Pulse Resp B/P (MAP) Pulse Ox O2 Delivery O2 Flow Rate FiO2 12/28/19 11:46 35.8 83 20 119/68 (85) 95 Nasal Cannula 2.00 General Appearance: No Apparent Distress, WD/WN, Chronically ill Allergies: Coded Allergies: amlodipine (Verified Allergy, Unknown, 12/16/19) atorvastatin (Verified Allergy, Unknown, 12/16/19) Discharge Summary Date of Admission Dec 25, 2019 at 17:08 Date of Discharge Discharge Date: Dec 28, 2019 Admission Diagnosis Severe sepsis due to urinary tract infection Discharge Diagnosis Assessment: Acute delirium Flu A and Flu B UTI KLEBSIELLA Renal transplant history CHF Acute renal failure Chronic renal insufficiency Chronic anemia Aortic valve replacement Coumadin therapy Plan: Tamiflu gentle IV fluids [facility] referral Monitor creatinine closely Rocephin for UTI (1) Severe sepsis with acute organ dysfunction Status: Acute (2) UTI (urinary tract infection) Status: Acute Qualifiers: Qualified Codes: N30.01 - Acute cystitis with hematuria (3) Recurrent urinary tract infection Status: Acute (4) Acute kidney injury superimposed on chronic kidney disease Status: Acute (5) Lactic acidosis Status: Acute (6) Influenza A Status: Acute (7) Influenza B Status: Acute (8) Anemia Status: Chronic (9) T2DM (type 2 diabetes mellitus) Status: Chronic Qualifiers: Qualified Codes: E11.65 - Type 2 diabetes mellitus with hyperglycemia; Z79.4 - [employer] (current) use of insulin (10) Paroxysmal A-fib Status: Chronic (11) Anticoagulated on Coumadin Status: Chronic (12) Kidney transplant recipient Status: Chronic (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
--- NOTE | 2019-12-28 13:56 | NUR ---
"RD ASSESSMENT PMHx: HTN; DM; HLD; afib; kidney transplant; HF; osteoporosis; PT INTERACTION: Pt was awake and pleasant during nutrition assessment. Note pt has AMS, per chart review. Pt states current appetite is pretty good. Note avg PO intake 67% x3d, per chart review. Pt states following a low-CHO diet at home, and has no issues with chewing/swallowing food. Pt states recent issues with nausea, vomiting, and diarrhea. Note last BM was 12/24, and pt currently on bowel regimen of miralax HS; colace BID; and senna BID, per chart review. Pt states recent wt loss, but is unsure of amount/timeframe. Note unable to determine recent wt hx, per chart review. Pt states current DM management is pretty good. Note recent HbA1c of 7.0 (12/26/2019), per chart review. ABNORMAL NUTRITION-RELATED LAB VALUES LOW: Na 130; HIGH: BUN 74; cr 1.65; glu 387 Est. kcal needs: 1650 kcal | 20 kcal/kg Est. Pro needs: 66 g Pro | 0.8 g Pro/kg PES STATEMENT: Inadequate oral intake (NI-2.1) related to loss of appetite | nausea | vomiting | diarrhea as evidenced by pt interview | avg PO intake 67% x3d INTERVENTION: Continue with current diet order of CHO 60g/m 1snack diet. Pt may benefit from nutrition supplementation if PO intake declines. Did not offer diet education on DM management at this time, d/t pt's AMS. May attempt to offer when familiy present at bedside. Encouraged pt to eat when able. Will continue to follow and reassess as pt needs, intake, and status change. Heather Casas, MS RD LD"
--- NOTE | 2019-12-28 14:02 | NUR ---
Report called to NICOLASA Palacio at [facility] at this time.
--- NOTE | 2019-12-28 14:30 | Diagnostic Imaging Report ---
PROCEDURE: CT head without contrast. TECHNIQUE: Multiple contiguous axial images were obtained through the brain without the use of intravenous contrast. Auto Exposure Controls were utilized during the CT exam to meet ALARA standards for radiation dose reduction. INDICATION: Altered mental status. COMPARISON: No prior examinations are available for comparison. FINDINGS: There is prominence of the ventricles and sulci. There is no hydrocephalus or cerebral edema. There is no midline shift or mass-effect. There is no intracranial mass, hemorrhage, or extra-axial fluid collection. There is some diffuse decreased attenuation of the periventricular white matter which is nonspecific. The visualized paranasal sinuses and mastoid air cells are clear. There are no regional areas of decreased attenuation appreciated to suggest an acute CVA. IMPRESSION: 1. No acute intracranial process. 2. Age-appropriate atrophy. 3. Decreased attenuation of the periventricular white matter which is nonspecific, however, likely reflects senescent change and/or chronic small vessel ischemic disease. If there is high clinical concern for an acute CVA, further evaluation with MRI should be considered. Dictated by: Dictated on workstation # [id number]
[2019-12-28] MEDS ORDERED: LORazepam INJ 2 MG/ML (ATIVAN) VIAL ONE (15:41)
[2019-12-28] MEDS ORDERED: LORazepam INJ 2 MG/ML (ATIVAN) VIAL IM ONE (15:45)
--- NOTE | 2019-12-28 15:49 | NUR ---
1525: EMS here at this time to transport patient to [facility]. Patient transfered to cot and then became combative. Kicking at EMS staff and and unbuckling self from cot. 1535: Telephone orders from Dr. Oh received at this time for ativan 1mg IM once for aggitation. 1545: 1mg ativan IM given. 1551: Patient much more calm at this time and EMS exited with patient.
--- NOTE | 2019-12-28 17:13 | Consultation-Cardiology ---
HPI-Cardiology Cardiology Consultation: Date of Consultation 12/28/19 Time Seen by a Provider: 12:15 Date of Admission Attending Physician Terrie Medina MD Admitting Physician Jersey Tee MD Consulting Physician AMBROSIO BAIRD MD, MA, FACP, FACC, FSCAI, CCDS HPI: Chief Complaint: Reason for consultation: Shortness of breath HPI Mr. Spring is a 79 yr old male admitted to [facility] from the ED. He reports inc reasing SOB over the last few days at home. He reports increasing urinary frequency with decreased output. He denies any c/o CP, palpitations, syncope, near syncope or LE swelling. He denies any fever or chills. He denies any LE swelling. Review of Systems-Cardiology Review of Systems Constitutional: No chills, No fever; malaise Eyes: No vision change Ears/Nose/Throat: No epistaxis, No recent hearing loss Respiratory: As described under HPI Cardiovascular: As described under HPI Gastrointestinal: No constipation, No diarrhea, No nausea, No vomiting Genitourinary: As described under HPI Musculoskeletal: joint pain Skin: No rash on exposed areas, No ulcerations on exposed areas Psychiatric/Neurological: No anxiety, No depression, No seizure, No focal weakness, No syncope Hematologic: No bleeding abnormalities [id number] Hx Patient Social History Alcohol Use: Denies Use Recreational Drug Use: No 2nd Hand Smoke Exposure: No Recent Foreign Travel: No Recent Infectious Disease Expo: No Hospitalization with Isolation: Denies Past Medical History PMH As described under Assessment. Family Medical History Family Medical History: Reports father had CVA and HTN. Brother had CAD and HTN. Allergies and Home Medications Allergies Coded Allergies: amlodipine (Verified Allergy, Unknown, 12/16/19) atorvastatin (Verified Allergy, Unknown, 12/16/19) Home Medications Aspirin 81 Mg Tab.chew, 81 MG PO DAILY, (Reported) Calcium Carbonate/Vitamin D3 1 Each Tablet, 1 TAB PO DAILY, (Reported) Ceftriaxone Na/Dextrose,Iso 1 Gm/50 Ml Piggyback, 1 GM IV DAILY Prescribed by: ANAMARIA PRECIADO on 12/28/19 6471 Cyclosporine 25 Mg Capsule, 75 MG PO BID, (Reported) Ezetimibe 10 Mg Tablet, 10 MG PO DAILY, (Reported) Ferrous Gluconate 236 Mg Tablet, 236 MG PO DAILY, (Reported) Metoprolol Tartrate 25 Mg Tablet, 25 MG PO BID, (Reported) Multivitamin 1 Each Tablet, 1 EACH PO DAILY, (Reported) Nifedipine 30 Mg Tab.er.24, 30 MG PO DAILY, (Reported) [place]-3 Fatty Acids/Fish Oil 1 Each Capsule.dr, 1 EACH PO DAILY, (Reported) Oseltamivir Phosphate 30 Mg Capsule, 30 MG PO HS Prescribed by: ANAMARIA PRECIADO on 12/28/19 1352 Pantoprazole Sodium 40 Mg Tablet.dr, 40 MG PO BID, (Reported) Prednisone 1 Mg Tab, 2 MG PO DAILY, (Reported) Quetiapine Fumarate 25 Mg Tablet, 12.5 MG PO BID Prescribed by: ANAMARIA PRECIADO on 12/28/19 1352 Rosuvastatin Calcium 20 Mg Tablet, 20 MG PO HS, (Reported) Tamsulosin HCl 0.4 Mg Cap, 0.4 MG PO HS, (Reported) Vit C/E/Zn/Coppr/Lutein/Zeaxan 1 Each Capsule, 1 EACH PO BID, (Reported) Warfarin Sodium 5 Mg Tablet, 5 MG PO HS, (Reported) Patient Home Medication List Home Medication List Reviewed: Yes Physical Exam-Cardiology Physical Exam Vital Signs/I&O 12/28/19 12/28/19 12/28/19 12/28/19 08:00 08:00 09:50 11:46 Temp 36.1 35.8 Pulse 77 83 Resp 20 20 B/P (MAP) 130/63 (85) 119/68 (85) Pulse Ox 93 95 O2 Delivery Nasal Cannula Nasal Cannula Nasal Cannula Nasal Cannula O2 Flow Rate 2.00 1.00 1.00 2.00 12/28/19 00:00 Intake Total 1190 ml Output Total 400 ml Balance 790 ml Capillary Refill : Less Than 3 Seconds Constitutional: AAO x 3, well-developed, well-nourished HEENT: PERRL, hard of hearing, oral hygience is good Neck: No carotid bruit; carotid pulses are 2 + bilaterally Respiratory: No accessory muscle use, No respiratory distress; other (good air entry) Cardiovascular: irregularly irregular; No JVD; S1 and S2, systolic murmur Gastrointestinal: No tender; soft, round, audible bowel sounds Extremities: no lower extremity edema bilateral Neurologic/Psychiatric: grossly intact (moves all extremities) Skin: No rash on exposed areas, No ulcerations on exposed areas Data Review Labs Laboratory Tests 12/27/19 17:09: Glucometer 453*H 12/27/19 21:04: Glucometer 370H 12/28/19 05:14: Glucometer 380H 12/28/19 05:33: White Blood Count 8.7, Red Blood Count 2.79L, Hemoglobin 7.4L, Hematocrit 23L, Mean Corpuscular Volume 83, Mean Corpuscular Hemoglobin 27, Mean Corpuscular Hemoglobin Concent 32, Red Cell Distribution Width 19.0H, Platelet Count 241, Mean Platelet Volume 11.2, Immature Granulocyte % (Auto) 0, Neutrophils (%) (Auto) 81H, Lymphocytes (%) (Auto) 10L, Monocytes (%) (Auto) 8, Eosinophils (%) (Auto) 1, Basophils (%) (Auto) 0, Neutrophils # (Auto) 7.1, Lymphocytes # (Auto) 0.8L, Monocytes # (Auto) 0.7, Eosinophils # (Auto) 0.1, Basophils # (Auto) 0.0, Immature Granulocyte # (Auto) 0.0, Prothrombin Time 36.6H, INR Comment 3.7H, Sodium Level 130L, Potassium Level 4.9, Chloride Level 100, Carbon Dioxide Level 17L, Anion Gap 13, Blood Urea Nitrogen 74H, Creatinine 2.65H, Estimat Glomerular Filtration Rate 23, BUN/Creatinine Ratio 28, Glucose Level 387H, Calcium Level 8.6, Total Bilirubin 0.6, Direct Bilirubin 0.4H, Indirect Bilirubin 0.2, Aspartate Amino Transf (AST/SGOT) 64H, Alanine Aminotransferase (ALT/SGPT) 36, Alkaline Phosphatase 100, Total Protein 5.8L, Albumin 2.9L 12/28/19 12:06: Glucometer 369H Microbiology 12/25/19 Blood Culture - Preliminary, Resulted No growth 12/25/19 Urine Culture - Final, Complete Klebsiella pneumoniae 12/25/19 Influenza Types A,B Antigen (JT) - Final, Complete Laboratory Tests 12/27/19 06:00 12/28/19 05:33 A/P-Cardiology Assessment/Admission Diagnosis Shortness of breath, multifactorial (see below) Influenza A & B positive UTI with sepsis Echo of 12/28/19: LVEF 70-75%, mod to sev dilatation of LA, mod MAC, mech prosthetic AoV with mild stenosis, mild to mod TR, PASP 50-55 mmHg Permanent A Fib DM II Renal transplant in 1995 CKD 4 with worsening renal failure - management per Dr Preciado Anemia, apparently chronic, etiology undetermined - worsening H/H - management per Dr Preciado Surgical mechanical ao valve 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 Olivia at [facility]. CABG first and then Ao V replacement in two separate surgeries in [place], [place] Chronic warfarin anticoag - supra-therapeutic INR ETOH usage (has previously reported a beer and one whiskey a week) Discussion and Recomendations He has multiple comorbidities that include influenza, ac on ch renal failure, UTI with sepsis, mental status changes. These are being managed by Dr Preciado Does not appear to be in significant heart failure at this time. Diuretics as needed only Continue home medications including BB and statin Resume ASA 81mg d/t known h/o CAD with CABG Supra-therapeutic INR - monitor warfarin closely - hold today Continue OAC d/t mechanical AoVR and chronic a-fib for stroke prophylaxis We would like to thank Dr Preciado for this consult Clinical Quality Measures DVT/VTE Risk/Contraindication: Risk Factor Score Per Nursin RFS Level Per Nursing on Admit: 4+=Very High AMBROSIO BAIRD MD FACP [facility] CCDS Dec 28, 2019 17:13
--- NOTE | 2019-12-28 20:39 | Discharge Summary ---
Discharge Summary Hospital Course Problems/Dx: (1) Severe sepsis with acute organ dysfunction Status: Acute (2) UTI (urinary tract infection) Status: Acute Qualifiers: Qualified Codes: N30.01 - Acute cystitis with hematuria (3) Recurrent urinary tract infection Status: Acute (4) Acute kidney injury superimposed on chronic kidney disease Status: Acute (5) Lactic acidosis Status: Acute (6) Influenza A Status: Acute (7) Influenza B Status: Acute (8) Anemia Status: Chronic (9) T2DM (type 2 diabetes mellitus) Status: Chronic Qualifiers: Qualified Codes: E11.65 - Type 2 diabetes mellitus with hyperglycemia; Z79.4 - FDC (current) use of insulin (10) Paroxysmal A-fib Status: Chronic (11) Anticoagulated on Coumadin Status: Chronic (12) Kidney transplant recipient Status: Chronic (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 (14) HTN (hypertension) Status: Chronic (15) HLD (hyperlipidemia) Status: Chronic (16) BPH (benign prostatic hyperplasia) Status: Chronic Hospital Course Date of Admission: Dec 25, 2019 at 17:08 Admission Diagnosis : Family Physician/Provider: Jersey Tee MD Date of Discharge: 12/28/19 Discharge Diagnosis: [ ] Hospital Course: [ ] Labs and Pending Lab Test: Laboratory Tests 12/27/19 21:04: Glucometer 370H 12/28/19 05:14: Glucometer 380H 12/28/19 05:33: White Blood Count 8.7, Red Blood Count 2.79L, Hemoglobin 7.4L, Hematocrit 23L, Mean Corpuscular Volume 83, Mean Corpuscular Hemoglobin 27, Mean Corpuscular Hemoglobin Concent 32, Red Cell Distribution Width 19.0H, Platelet Count 241, Mean Platelet Volume 11.2, Immature Granulocyte % (Auto) 0, Neutrophils (%) (Auto) 81H, Lymphocytes (%) (Auto) 10L, Monocytes (%) (Auto) 8, Eosinophils (%) (Auto) 1, Basophils (%) (Auto) 0, Neutrophils # (Auto) 7.1, Lymphocytes # (Auto) 0.8L, Monocytes # (Auto) 0.7, Eosinophils # (Auto) 0.1, Basophils # (Auto) 0.0, Immature Granulocyte # (Auto) 0.0, Prothrombin Time 36.6H, INR Comment 3.7H, Sodium Level 130L, Potassium Level 4.9, Chloride Level 100, Carbon Dioxide Level 17L, Anion Gap 13, Blood Urea Nitrogen 74H, Creatinine 2.65H, Estimat Glomerular Filtration Rate 23, BUN/Creatinine Ratio 28, Glucose Level 387H, Calcium Level 8.6, Total Bilirubin 0.6, Direct Bilirubin 0.4H, Indirect Bilirubin 0.2, Asp artate Amino Transf (AST/SGOT) 64H, Alanine Aminotransferase (ALT/SGPT) 36, Alkaline Phosphatase 100, Total Protein 5.8L, Albumin 2.9L 12/28/19 12:06: Glucometer 369H Microbiology 12/25/19 Blood Culture - Preliminary, Resulted No growth 12/25/19 Urine Culture - Final, Complete Klebsiella pneumoniae 12/25/19 Influenza Types A,B Antigen (JT) - Final, Complete Home Meds Active Quetiapine Fumarate 25 Mg Tablet 12.5 Mg PO BID 2 Days Ceftriaxone 1 gm-D5w Bag (Ceftriaxone Na/Dextrose,Iso) 1 Gm/50 Ml Piggyback 1 Gm IV DAILY 5 Days Tamiflu (Oseltamivir Phosphate) 30 Mg Capsule 30 Mg PO HS 3 Days Reported Iron (Ferrous Gluconate) 236 Mg Tablet 236 Mg PO DAILY Preservision Areds 2 Softgel (Vit C/E/Zn/Coppr/Lutein/Zeaxan) 1 Each Capsule 1 Each PO BID Ezetimibe 10 Mg Tablet 10 Mg PO DAILY Multivitamin 1 Each Tablet 1 Each PO DAILY Cyclosporine 25 Mg Capsule 75 Mg PO BID Calcium + Vitamin D Tablet (Calcium Carbonate/Vitamin D3) 1 Each Tablet 1 Tab PO DAILY Aspirin 81 Mg Tab.chew 81 Mg PO DAILY Warfarin Sodium 5 Mg Tablet 5 Mg PO HS Pantoprazole Sodium 40 Mg Tablet.dr 40 Mg PO BID Flomax (Tamsulosin HCl) 0.4 Mg Cap 0.4 Mg PO HS Rosuvastatin Calcium 20 Mg Tablet 20 Mg PO HS Prednisone 1 Mg Tab 2 Mg PO DAILY [place] 3 Fish Oil Softgel ([place]-3 Fatty Acids/Fish Oil) 1 Each Capsule.dr 1 Each PO DAILY Nifedipine ER (Nifedipine) 30 Mg Tab.er.24 30 Mg PO DAILY Metoprolol Tartrate 25 Mg Tablet 25 Mg PO BID Discharge Instructions Pneumonia Vaccine Order Indica: Yes Discharge Physical Examination Vital Signs Vital Signs Date Time Temp Pulse Resp B/P (MAP) Pulse Ox O2 Delivery O2 Flow Rate FiO2 12/28/19 11:46 35.8 83 20 119/68 (85) 95 Nasal Cannula 2.00 Allergies: Coded Allergies: amlodipine (Verified Allergy, Unknown, 12/16/19) atorvastatin (Verified Allergy, Unknown, 12/16/19) Discharge Summary Date of Admission Dec 25, 2019 at 17:08 Date of Discharge Dec 28, 2019 at 16:03 Discharge Date: Dec 28, 2019 Admission Diagnosis Severe sepsis due to urinary tract infection Discharge Diagnosis Assessment: Acute delirium Flu A and Flu B UTI KLEBSIELLA Renal transplant history CHF Acute renal failure Chronic renal insufficiency Chronic anemia Aortic valve replacement Coumadin therapy Plan: Tamiflu gentle IV fluids [facility] referral Monitor creatinine closely Rocephin for UTI (1) Severe sepsis with acute organ dysfunction Status: Acute (2) UTI (urinary tract infection) Status: Acute Qualifiers: Qualified Codes: N30.01 - Acute cystitis with hematuria (3) Recurrent urinary tract infection Status: Acute (4) Acute kidney injury superimposed on chronic kidney disease Status: Acute (5) Lactic acidosis Status: Acute (6) Influenza A Status: Acute (7) Influenza B Status: Acute (8) Anemia Status: Chronic (9) T2DM (type 2 diabetes mellitus) Status: Chronic Qualifiers: Qualified Codes: E11.65 - Type 2 diabetes mellitus with hyperglycemia; Z79.4 - intermediate teacher (current) use of insulin (10) Paroxysmal A-fib Status: Chronic (11) Anticoagulated on Coumadin Status: Chronic (12) Kidney transplant recipient Status: Chronic (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
[2019-12-28] MEDS ORDERED: polyethylene glycoL POWDER 17 GM (MIRALAX) PACK PO SCH (21:00)
[2019-12-28] MEDS ORDERED: QUEtiapine 25 MG (SEROquel) TAB IMMEDIATE RELEASE PO SCH (21:00)
== END 2019-12-28 16:03 | disposition short-term general hospital (02) | DRG 871 ==
LOC: ER FS 11:18 → EDUNIT# 11:18 → ER FS 16:26 → 4TH 17:08 → UNDOADMIN 17:08 → 4TH 12-26 12:00
PROVIDERS: ADMIT Internal Medicine; ATTEND Internal Medicine
DX: A41.89 Other specified sepsis (principal); I50.33 Acute on chronic diastolic (congestive) heart failure; N39.0 Urinary tract infection, site not specified; N17.9 Acute kidney failure, unspecified; Z94.0 Kidney transplant status; I13.0 Hypertensive heart and chronic kidney disease with heart failure and stage 1 through stage 4 chronic kidney disease, or unspecified chronic kidney disease; E87.2 Acidosis; R65.20 Severe sepsis without septic shock; J10.1 Influenza due to other identified influenza virus with other respiratory manifestations; N18.9 Chronic kidney disease, unspecified; D63.1 Anemia in chronic kidney disease; E86.0 Dehydration; E11.65 Type 2 diabetes mellitus with hyperglycemia; E78.5 Hyperlipidemia, unspecified; I25.2 Old myocardial infarction; I48.91 Unspecified atrial fibrillation; E78.00 Pure hypercholesterolemia, unspecified; M81.0 Age-related osteoporosis without current pathological fracture; Z20.828 Contact with and (suspected) exposure to other viral communicable diseases; N40.0 Benign prostatic hyperplasia without lower urinary tract symptoms; Z79.4 Long term (current) use of insulin; Z79.01 Long term (current) use of anticoagulants; Z79.899 Other long term (current) drug therapy; Z79.52 Long term (current) use of systemic steroids; Z91.81 History of falling; Z95.2 Presence of prosthetic heart valve; Z95.1 Presence of aortocoronary bypass graft
CPT/HCPCS: 36415; 70450; 71045; 80048; 80053; 80076; 81000; 82607; 82728; 82746; 82962; 83036; 83540; 83605; 84145; 84484; 85007; 85025; 85027; 85610; 87040; 87077; 87088; 87186; 87635; 87804; 93005; 93306